=== PATIENT | female | born 1950 | race Caucasian/White ===

== ENCOUNTER → 2018-02-04 | Day surgery (SDC) | payer MEDICARE ==
[~2018-02-04] MED LIST: LIDOCAINE 1% PF 2 ML VIAL. ID; LIDOCAINE 2% PF Vial for OR 5 ML VIAL.; MIDAZOLAM HCL/PF 2 MG/2 ML VIAL. IV; PROPOFOL 20 ML IV; fentaNYL PF VIAL 100 MCG/2 ML VIAL IV
[2018-02-04] MEDS: IV RINGERS,LACTATED 1000ML 1,000 ML IV (16:34)
== END | disposition home or self-care (01) ==
LOC: ENDOS 15:59
DX: K64.0 First degree hemorrhoids (principal); K57.30 Diverticulosis of large intestine without perforation or abscess without bleeding; F41.9 Anxiety disorder, unspecified; F32.9 Major depressive disorder, single episode, unspecified; M19.90 Unspecified osteoarthritis, unspecified site; K21.9 Gastro-esophageal reflux disease without esophagitis; Z83.71 Family history of colonic polyps; Z82.49 Family history of ischemic heart disease and other diseases of the circulatory system; Z79.899 Other long term (current) drug therapy; Z90.710 Acquired absence of both cervix and uterus; Z90.49 Acquired absence of other specified parts of digestive tract; Z80.0 Family history of malignant neoplasm of digestive organs
CPT/HCPCS: 45378; J2704

== ENCOUNTER 2022-02-14 19:25 | Inpatient (IN) | payer MEDICARE ==
[~2022-02-14] VITALS: Ht 162.6 cm; Wt 69.8 kg
[2022-02-14 19:15] VITALS: BP 127/84
[~2022-02-14 19:25] MED LIST changes: +ESCITALOPRAM OX10 MG PO; -LIDOCAINE 1% PF 2 ML VIAL. ID; -LIDOCAINE 2% PF Vial for OR 5 ML VIAL.; -MIDAZOLAM HCL/PF 2 MG/2 ML VIAL. IV; +OMEP20TA63 PO; -PROPOFOL 20 ML IV; -fentaNYL PF VIAL 100 MCG/2 ML VIAL IV
[2022-02-14] MEDS ORDERED: ELECTROLYTE (NON-ICU) PROTOCOL. MC PRN (19:45)
[2022-02-14] MEDS ORDERED: CALCIUM CARBONATE 500 MG TAB.CHEW PO PRN (19:45)
[2022-02-14] MEDS ORDERED: ONDANSETRON PF 4 MG/2 ML VIAL. IVP PRN (19:45)
[2022-02-14] MEDS ORDERED: ACETAMINOPHEN 325 MG TABLET. PO PRN (19:45)
[2022-02-14] MEDS ORDERED: ZOLPIDEM 5 MG TABLET. PO PRN (19:45)
[2022-02-14] MEDS ORDERED: oxyCODONE/APAP 5/325 1 TAB TABLET PO PRN (19:45)
[2022-02-14 20:45] LABS: BASO # 0.1 x10^3/uL (0.0-0.2); BASO % 1 % (0-3); EOS % 1 % (0-3); HEMATOCRIT 41.4 % (36.0-47.0); HEMOGLOBIN 13.9 g/dL (12.0-15.5); LYMPH # 2.1 x10^3/uL (1.0-4.8); LYMPH % 28 % (24-48); MEAN CORPUSCULAR HEMOGLOBIN 30 pg (25-35); MEAN CORPUSCULAR HGB CONC 34 g/dL (31-37); MEAN CORPUSCULAR VOLUME 91 fL (79-100); MONO # 0.6 x10^3/uL (0.0-1.1); MONO % 8 % (0-9); NEUT # 4.8 x10^3/uL (1.8-7.7); NEUT % 63 % (31-73); PLATELET COUNT 217 x10^3/uL (140-400); RED BLOOD COUNT 4.58 x10^6/uL (3.50-5.40); RED CELL DISTRIBUTION WIDTH 15.5 % (11.5-14.5); WHITE BLOOD COUNT 7.6 x10^3/uL (4.0-11.0)
[2022-02-14 20:50] LABS: ALBUMIN 3.9 g/dL (3.4-5.0); ALBUMIN/GLOBULIN RATIO 1.3 (1.0-1.7); CALCIUM 9.8 mg/dL (8.5-10.1); CHOLESTEROL/HDL RATIO 2.8; CREATININE 0.9 mg/dL (0.6-1.0); GFR 62.1; POTASSIUM 3.8 mmol/L (3.5-5.1); TOTAL BILIRUBIN 1.1 mg/dL (0.2-1.0); TOTAL PROTEIN 6.9 g/dL (6.4-8.2)
[2022-02-14] MEDS: SENNOSIDES/DOCUSATE 8.6/50MG TABLET. PO SCH (21:00)
[2022-02-14] MEDS: HEPARIN for SUB-Q USE 5,000 UNIT/ML VIAL. SQ SCH (21:21)
[2022-02-14 23:00] VITALS: BP 116/76
[2022-02-15] VITALS (7 sets, daily range): BP systolic 120–141; BP diastolic 71–87
[2022-02-15] MEDS: oxyCODONE/APAP 5/325 1 TAB TABLET PO PRN ×2 (02:49→23:43)
[2022-02-15 04:07] LABS: BASO % 0 % (0-3); EOS # 0.1 x10^3/uL (0.0-0.7); EOS % 1 % (0-3); HEMATOCRIT 39.7 % (36.0-47.0); HEMOGLOBIN 13.5 g/dL (12.0-15.5); LYMPH # 2.1 x10^3/uL (1.0-4.8); LYMPH % 31 % (24-48); MEAN CORPUSCULAR HEMOGLOBIN 30 pg (25-35); MEAN CORPUSCULAR HGB CONC 34 g/dL (31-37); MEAN CORPUSCULAR VOLUME 89 fL (79-100); MONO # 0.6 x10^3/uL (0.0-1.1); MONO % 9 % (0-9); NEUT # 3.9 x10^3/uL (1.8-7.7); NEUT % 59 % (31-73); PLATELET COUNT 182 x10^3/uL (140-400); RED BLOOD COUNT 4.48 x10^6/uL (3.50-5.40); RED CELL DISTRIBUTION WIDTH 15.1 % (11.5-14.5); WHITE BLOOD COUNT 6.7 x10^3/uL (4.0-11.0)
[2022-02-15 04:25] LABS: ALBUMIN 3.7 g/dL (3.4-5.0); ALBUMIN/GLOBULIN RATIO 1.3 (1.0-1.7); CALCIUM 9.5 mg/dL (8.5-10.1); CREATININE 0.9 mg/dL (0.6-1.0); GFR 62.1; POTASSIUM 3.4 mmol/L (3.5-5.1); TOTAL BILIRUBIN 0.9 mg/dL (0.2-1.0); TOTAL PROTEIN 6.5 g/dL (6.4-8.2)
[2022-02-15] MEDS: HEPARIN for SUB-Q USE 5,000 UNIT/ML VIAL. SQ SCH ×2 (06:32→12:01)
[2022-02-15] MEDS: PANTOPRAZOLE 40 MG TABLET.DR. PO SCH (07:30)
--- NOTE | 2022-02-15 07:54 | PDOC1 ---
History and Physical Date of Admission Date of Admission DATE: 02/15/22 TIME: 07:43 Identification/Chief Complaint Chief Complaint Chest pain Source Source: Patient History of Present Illness History of Present Illness Patient is a 71-year-old woman with past medical history DM2, HTN, COPD, presents as a transfer from [facility] due to chest pain. She reports intermittent left-sided chest pain over the past 2 weeks. Associated shortness of breath. She was seen by her PCP yesterday who referred her to the ED for further evaluation. At [facility] lab work showed mild hypokalemia, mild hyperglycemia, troponins 169, with repeat 168. Chest x-ray showed new cardiomegaly and chronic appearing interstitial changes in the lung base. She denies any nausea or dizziness. She was transferred to [facility] for higher level of care. Past Medical History Past Medical History COPD, hypertension, DM2, cervical cancer, anxiety Past Surgical History Past Surgical History: No pertinent history Social History Smoke: 1 pack per day ALCOHOL: none Drugs: None Current Medications Current Medications Current Medications Ondansetron HCl (Zofran) 4 mg PRN Q6HRS PRN IVP NAUSEA/VOMITING; Start 02/14/22 at 19:45 Calcium Carbonate/ Glycine (Tums) 500 mg PRN Q3HRS PRN PO UPSET STOMACH; Start 02/14/22 at 19:45 Zolpidem Tartrate (Ambien) 5 mg PRN QHS PRN PO INSOMNIA, MAY REPEAT IN 1HR; Start 02/14/22 at 19:45 Info (Non-Icu Electrolyte Protocol) 1 ea PRN DAILY PRN MC SEE COMMENTS; Start 02/14/22 at 19:45 Oxycodone/ Acetaminophen (Percocet 5/325) 1 tab PRN Q4HRS PRN PO MILD PAIN, 1ST CHOICE Last administered on 02/15/22at 02:49; Start 02/14/22 at 19:45 Oxycodone/ Acetaminophen (Percocet 5/325) 2 tab PRN Q4HRS PRN PO MODERATE PAIN, SEVERE PAIN; Start 02/14/22 at 19:45 Acetaminophen (Tylenol) 650 mg PRN Q6HRS PRN PO Headaches, Temp > 101.5F; Start 02/14/22 at 19:45 Senna/Docusate Sodium (Senna Plus) 1 tab BID PO ; Start 02/14/22 at 21:00 Heparin Sodium (Porcine) (Heparin Sodium) 5,000 unit Q8HRS SQ Last administered on 02/15/22at 06:32; Start 02/14/22 at 22:00 Citalopram Hydrobromide (CeleXA) 20 mg DAILY PO ; Start 02/15/22 at 09:00 Pantoprazole Sodium (Protonix) 40 mg DAILYAC PO ; Start 02/15/22 at 07:30 Active Scripts Active Reported Prilosec Otc (Omeprazole Magnesium) 20 Mg Tablet.dr 40 Mg PO DAILY Escitalopram Oxalate 10 Mg Tablet 1 Tab PO DAILY Allergies Allergies: Coded Allergies: No Known Drug Allergies (Unverified , 02/04/18) ROS Review of System GENERAL: No history of weight change, weakness or fevers. SKIN: No bruising, hair changes or rashes. EYES: No blurred, double or loss of vision. NOSE AND THROAT: No history of nosebleeds, hoarseness or sore throat. HEART: Chest pain. Denies palpitations. LUNGS: Shortness of breath. Denies cough, hemoptysis, wheezing . GASTROINTESTINAL: Denies nausea, vomiting, abdominal pain. GENITOURINARY: Denies dysuria, frequency, urgency, hematuria. NEUROLOGIC: Denies history of numbness, tingling, tremor or weakness. PSYCHIATRIC: Denies anxiety, denies depression. ENDOCRINE: No history of heat or cold intolerance, polyuria or polydipsia. EXTREMITIES: Denies muscle weakness, joint pain, pain on walking or stiffness. Physical Exam Physical Exam General: Alert, Oriented X3, Cooperative, No acute distress HEENT: PERRLA, EOMI Lungs: Bibasilar rales, Normal air movement Heart: RRR, no murmurs Cardiovascular: S1, S2 Abdomen: Normal bowel sounds, Soft, No tenderness Extremities: +1 edema bilaterally. No clubbing, No cyanosis Skin: No rashes, No significant lesion Neuro: Normal speech, Normal tone, Sensation intact Psych/Mental Status: Mental status NL, Mood NL Vitals Vitals Vital Signs Date Time Temp Pulse Resp B/P (MAP) Pulse Ox O2 Delivery O2 Flow Rate FiO2 02/15/22 03:19 Room Air 02/15/22 03:00 98.0 96 16 122/87 (99) 96 98.0 Labs Labs Laboratory Tests Test 02/14/22 20:15 02/15/22 00:40 02/15/22 03:45 White Blood Count 7.6 x10^3/uL (4.0-11.0) 6.7 x10^3/uL (4.0-11.0) Red Blood Count 4.58 x10^6/uL (3.50-5.40) 4.48 x10^6/uL (3.50-5.40) Hemoglobin 13.9 g/dL (12.0-15.5) 13.5 g/dL (12.0-15.5) Hematocrit 41.4 % (36.0-47.0) 39.7 % (36.0-47.0) Mean Corpuscular Volume 91 fL (79-100) 89 fL (79-100) Mean Corpuscular Hemoglobin 30 pg (25-35) 30 pg (25-35) Mean Corpuscular Hemoglobin Concent 34 g/dL (31-37) 34 g/dL (31-37) Red Cell Distribution Width 15.5 % (11.5-14.5) 15.1 % (11.5-14.5) Platelet Count 217 x10^3/uL (140-400) 182 x10^3/uL (140-400) Neutrophils (%) (Auto) 63 % (31-73) 59 % (31-73) Lymphocytes (%) (Auto) 28 % (24-48) 31 % (24-48) Monocytes (%) (Auto) 8 % (0-9) 9 % (0-9) Eosinophils (%) (Auto) 1 % (0-3) 1 % (0-3) Basophils (%) (Auto) 1 % (0-3) 0 % (0-3) Neutrophils # (Auto) 4.8 x10^3/uL (1.8-7.7) 3.9 x10^3/uL (1.8-7.7) Lymphocytes # (Auto) 2.1 x10^3/uL (1.0-4.8) 2.1 x10^3/uL (1.0-4.8) Monocytes # (Auto) 0.6 x10^3/uL (0.0-1.1) 0.6 x10^3/uL (0.0-1.1) Eosinophils # (Auto) 0.0 x10^3/uL (0.0-0.7) 0.1 x10^3/uL (0.0-0.7) Basophils # (Auto) 0.1 x10^3/uL (0.0-0.2) 0.0 x10^3/uL (0.0-0.2) Sodium Level 135 mmol/L (136-145) 138 mmol/L (136-145) Potassium Level 3.8 mmol/L (3.5-5.1) 3.4 mmol/L (3.5-5.1) Chloride Level 99 mmol/L (98-107) 101 mmol/L (98-107) Carbon Dioxide Level 24 mmol/L (21-32) 25 mmol/L (21-32) Anion Gap 12 (6-14) 12 (6-14) Blood Urea Nitrogen 8 mg/dL (7-20) 11 mg/dL (7-20) Creatinine 0.9 mg/dL (0.6-1.0) 0.9 mg/dL (0.6-1.0) Estimated GFR (Cockcroft-Gault) 62.1 62.1 BUN/Creatinine Ratio 9 (6-20) 12 (6-20) Glucose Level 176 mg/dL (70-99) 137 mg/dL (70-99) Calcium Level 9.8 mg/dL (8.5-10.1) 9.5 mg/dL (8.5-10.1) Total Bilirubin 1.1 mg/dL (0.2-1.0) 0.9 mg/dL (0.2-1.0) Aspartate Amino Transf (AST/SGOT) 55 U/L (15-37) 51 U/L (15-37) Alanine Aminotransferase (ALT/SGPT) 71 U/L (14-59) 70 U/L (14-59) Alkaline Phosphatase 103 U/L (46-116) 110 U/L (46-116) Troponin I High Sensitivity 171 ng/L (4-50) 150 ng/L (4-50) 174 ng/L (4-50) Total Protein 6.9 g/dL (6.4-8.2) 6.5 g/dL (6.4-8.2) Albumin 3.9 g/dL (3.4-5.0) 3.7 g/dL (3.4-5.0) Albumin/Globulin Ratio 1.3 (1.0-1.7) 1.3 (1.0-1.7) Triglycerides Level 100 mg/dL (0-150) Cholesterol Level 113 mg/dL (0-200) LDL Cholesterol, Calculated 52 mg/dL (0-100) VLDL Cholesterol, Calculated 20 mg/dL (0-40) Non-HDL Cholesterol Calculated 72 mg/dL (0-129) HDL Cholesterol 41 mg/dL (40-60) Cholesterol/HDL Ratio 2.8 Thyroid Stimulating Hormone (TSH) 6.159 uIU/mL (0.358-3.74) Laboratory Tests Test 02/14/22 20:15 02/15/22 00:40 02/15/22 03:45 White Blood Count 7.6 x10^3/uL (4.0-11.0) 6.7 x10^3/uL (4.0-11.0) Red Blood Count 4.58 x10^6/uL (3.50-5.40) 4.48 x10^6/uL (3.50-5.40) Hemoglobin 13.9 g/dL (12.0-15.5) 13.5 g/dL (12.0-15.5) Hematocrit 41.4 % (36.0-47.0) 39.7 % (36.0-47.0) Mean Corpuscular Volume 91 fL (79-100) 89 fL (79-100) Mean Corpuscular Hemoglobin 30 pg (25-35) 30 pg (25-35) Mean Corpuscular Hemoglobin Concent 34 g/dL (31-37) 34 g/dL (31-37) Red Cell Distribution Width 15.5 % (11.5-14.5) 15.1 % (11.5-14.5) Platelet Count 217 x10^3/uL (140-400) 182 x10^3/uL (140-400) Neutrophils (%) (Auto) 63 % (31-73) 59 % (31-73) Lymphocytes (%) (Auto) 28 % (24-48) 31 % (24-48) Monocytes (%) (Auto) 8 % (0-9) 9 % (0-9) Eosinophils (%) (Auto) 1 % (0-3) 1 % (0-3) Basophils (%) (Auto) 1 % (0-3) 0 % (0-3) Neutrophils # (Auto) 4.8 x10^3/uL (1.8-7.7) 3.9 x10^3/uL (1.8-7.7) Lymphocytes # (Auto) 2.1 x10^3/uL (1.0-4.8) 2.1 x10^3/uL (1.0-4.8) Monocytes # (Auto) 0.6 x10^3/uL (0.0-1.1) 0.6 x10^3/uL (0.0-1.1) Eosinophils # (Auto) 0.0 x10^3/uL (0.0-0.7) 0.1 x10^3/uL (0.0-0.7) Basophils # (Auto) 0.1 x10^3/uL (0.0-0.2) 0.0 x10^3/uL (0.0-0.2) Sodium Level 135 mmol/L (136-145) 138 mmol/L (136-145) Potassium Level 3.8 mmol/L (3.5-5.1) 3.4 mmol/L (3.5-5.1) Chloride Level 99 mmol/L (98-107) 101 mmol/L (98-107) Carbon Dioxide Level 24 mmol/L (21-32) 25 mmol/L (21-32) Anion Gap 12 (6-14) 12 (6-14) Blood Urea Nitrogen 8 mg/dL (7-20) 11 mg/dL (7-20) Creatinine 0.9 mg/dL (0.6-1.0) 0.9 mg/dL (0.6-1.0) Estimated GFR (Cockcroft-Gault) 62.1 62.1 BUN/Creatinine Ratio 9 (6-20) 12 (6-20) Glucose Level 176 mg/dL (70-99) 137 mg/dL (70-99) Calcium Level 9.8 mg/dL (8.5-10.1) 9.5 mg/dL (8.5-10.1) Total Bilirubin 1.1 mg/dL (0.2-1.0) 0.9 mg/dL (0.2-1.0) Aspartate Amino Transf (AST/SGOT) 55 U/L (15-37) 51 U/L (15-37) Alanine Aminotransferase (ALT/SGPT) 71 U/L (14-59) 70 U/L (14-59) Alkaline Phosphatase 103 U/L (46-116) 110 U/L (46-116) Troponin I High Sensitivity 171 ng/L (4-50) 150 ng/L (4-50) 174 ng/L (4-50) Total Protein 6.9 g/dL (6.4-8.2) 6.5 g/dL (6.4-8.2) Albumin 3.9 g/dL (3.4-5.0) 3.7 g/dL (3.4-5.0) Albumin/Globulin Ratio 1.3 (1.0-1.7) 1.3 (1.0-1.7) Triglycerides Level 100 mg/dL (0-150) Cholesterol Level 113 mg/dL (0-200) LDL Cholesterol, Calculated 52 mg/dL (0-100) VLDL Cholesterol, Calculated 20 mg/dL (0-40) Non-HDL Cholesterol Calculated 72 mg/dL (0-129) HDL Cholesterol 41 mg/dL (40-60) Cholesterol/HDL Ratio 2.8 Thyroid Stimulating Hormone (TSH) 6.159 uIU/mL (0.358-3.74) Images Images PATIENT: BETINA SEWELL ACCOUNT: [id number] : 1950 LOCATION: ER AGE: 71 SEX: F EXAM STATUS: REG ER ORD. PHYSICIAN: MATTHEW TALLEY APRN REASON: chest pain PROCEDURE: PORTABLE CHEST 1V EXAM: XR CHEST 1V 02/14/2022 11:44 AM CLINICAL INDICATION: Chest pain COMPARISON: Chest radiograph 03/18/2017 TECHNIQUE: AP view of the chest FINDINGS: There is new cardiomegaly. There are calcified left hilar lymph nodes. The lungs are adequately expanded. There are mild chronic appearing interstitial changes in the lung bases. No pleural effusion or pneumothorax. IMPRESSION: 1. New cardiomegaly. 2. Mild chronic appearing interstitial changes in the lung bases. VTE Prophylaxis Ordered VTE Prophylaxis Devices: No VTE Pharmacological Prophylaxi: Yes Assessment/Plan Assessment/Plan Chest pain CHF DM2 HTN Plan: Place consultation to cardiology Troponins trended and repeat 150, 174 Echocardiogram pending, lipid panel pending. Lasix 40x1 At the time my evaluation patient still complains of shortness of breath. If this persists she may benefit from a 6-minute walk. TSH 6.15. Subclinical hypothyroidism, recommend recheck in 6-8 weeks. LDSS Resume home medications FEN - Cardiac diet PPX - Heparin FULL CODE/surrogate decision-maker is her (Drew Coffey) Dispo - inpatient for above Justifications for Admission Other Justification HARDEEP ARECHIGA MD February 15, 2022 07:54
[2022-02-15] MEDS ORDERED: FLUT1DIS3 PO (08:07)
[2022-02-15] MEDS ORDERED: ALBU2.5V8 INH (08:07)
[2022-02-15] MEDS ORDERED: IPRA3AMP29 NEB (08:07)
[2022-02-15] MEDS ORDERED: METF500T16 PO (08:07)
[2022-02-15] MEDS ORDERED: DULO30CA44 PO (08:07)
[2022-02-15] MEDS ORDERED: ATOR80TA72 PO (08:07)
[2022-02-15] MEDS ORDERED: DEXTROSE 50% 25 GM / 50ML DISP.SYRIN. IV PRN (08:15)
[2022-02-15] MEDS ORDERED: CITALOPRAM 20 MG TABLET. PO SCH (09:00)
[2022-02-15] MEDS: SENNOSIDES/DOCUSATE 8.6/50MG TABLET. PO SCH ×3 (09:00→23:39)
[2022-02-15] MEDS: INSULIN LISPRO 300 UNITS/3 ML VIAL. SQ SCH ×3 (09:00→17:00)
--- NOTE | 2022-02-15 09:00 | PDOC2 ---
LAURIE SPEARS [employer] 02/15/22 0900: CARDIAC CONSULT DATE OF CONSULT Date of Consult DATE: 02/15/22 TIME: 08:48 REASON FOR CONSULT Reason for Consult: Chest pain, elevated troponin REFERRING PHYSICIAN Referring Physician: Tito SOURCE Source: Chart review, Patient HISTORY OF PRESENT ILLNESS HISTORY OF PRESENT ILLNESS This is a 71 yo female admitted for complains of chest pain. This has been ongoing for about 2 weeks. She has been having squeezing left chest discomfort waxing and waning and worse this week. Positive for SERRA. No nausea or vomiting. some palpitations. No jaw tightness or arm heaviness. No fever or chills. No viral symptoms. No falls or any recent injury. No form of ischemic workup in the past. No hx of CAD, VTE or arrhythmias. She is unvaccinated for covid-19. PAST MEDICAL HISTORY Cardiovascular: HTN, Hyperlipidemia Pulmonary: COPD CENTRAL NERVOUS SYSTEM: Carpal Tunnel Syndrome GI: GERD Heme/Onc: Cancer (cervical) Hepatobiliary: Cholelithiasis Psych: Anxiety, Other (Vit D deficiency) Musculoskeletal: Osteoarthritis Infectious disease: No pertinent hx ENT: No pertinent hx Renal/: No pertinent hx Endocrine: Diabetes (2) PAST SURGICAL HISTORY Past Surgical History: Arthroscopy (left knee surgery), Cholecystectomy, Hysterectomy, Other (right hand carpal tunnel release) SOCIAL HISTORY Smoke: 1 pack per day Lives: with Family CURRENT MEDICATIONS CURRENT MEDICATIONS Current Medications Medications (Trade) Dose Ordered Sig/Aura Route PRN Reason Start Time Stop Time Status Last Admin Dose Admin Oxycodone/ Acetaminophen (Percocet 5/325) 1 tab PRN Q4HRS PRN PO MILD PAIN, 1ST CHOICE 02/14/22 19:45 02/15/22 02:49 Heparin Sodium (Porcine) (Heparin Sodium) 5,000 unit Q8HRS SQ 02/14/22 22:00 02/15/22 06:32 ALLERGIES ALLERGIES: Coded Allergies: No Known Drug Allergies (Unverified , 02/04/18) ROS Review of System 14 point ROS evaluated with pertinent positives noted per HPI PHYSICAL EXAM General: Alert, Oriented X3, Cooperative, No acute distress HEENT: Atraumatic, Mucous membr. moist/pink Lungs: Other (bibasilar crackles) Heart: Regular rate (SR), Normal S1, Normal S2, Other (2/6 systolic apical murmur) Abdomen: Soft, No tenderness Extremities: No cyanosis, Other (trace LE edema) Skin: No breakdown, No significant lesion Neuro: Normal speech, Sensation intact Psych/Mental Status: Mental status NL, Mood NL MUSCULOSKELETAL: Osteoarthritic changes both hands VITALS/I&O VITALS/I&O: Vital Signs Date Time Temp Pulse Resp B/P (MAP) Pulse Ox O2 Delivery O2 Flow Rate FiO2 02/15/22 07:00 97.8 89 16 134/87 (103) 98 Nasal Cannula 2.0 97.8 I & O 02/14/22 02/14/22 02/15/22 15:00 23:00 07:00 Intake Total 100 ml 100 ml Balance 100 ml 100 ml LABS Lab: Laboratory Tests Test 02/14/22 20:15 02/15/22 00:40 02/15/22 03:45 White Blood Count 7.6 x10^3/uL (4.0-11.0) 6.7 x10^3/uL (4.0-11.0) Red Blood Count 4.58 x10^6/uL (3.50-5.40) 4.48 x10^6/uL (3.50-5.40) Hemoglobin 13.9 g/dL (12.0-15.5) 13.5 g/dL (12.0-15.5) Hematocrit 41.4 % (36.0-47.0) 39.7 % (36.0-47.0) Mean Corpuscular Volume 91 fL (79-100) 89 fL (79-100) Mean Corpuscular Hemoglobin 30 pg (25-35) 30 pg (25-35) Mean Corpuscular Hemoglobin Concent 34 g/dL (31-37) 34 g/dL (31-37) Red Cell Distribution Width 15.5 % (11.5-14.5) H 15.1 % (11.5-14.5) H Platelet Count 217 x10^3/uL (140-400) 182 x10^3/uL (140-400) Neutrophils (%) (Auto) 63 % (31-73) 59 % (31-73) Lymphocytes (%) (Auto) 28 % (24-48) 31 % (24-48) Monocytes (%) (Auto) 8 % (0-9) 9 % (0-9) Eosinophils (%) (Auto) 1 % (0-3) 1 % (0-3) Basophils (%) (Auto) 1 % (0-3) 0 % (0-3) Neutrophils # (Auto) 4.8 x10^3/uL (1.8-7.7) 3.9 x10^3/uL (1.8-7.7) Lymphocytes # (Auto) 2.1 x10^3/uL (1.0-4.8) 2.1 x10^3/uL (1.0-4.8) Monocytes # (Auto) 0.6 x10^3/uL (0.0-1.1) 0.6 x10^3/uL (0.0-1.1) Eosinophils # (Auto) 0.0 x10^3/uL (0.0-0.7) 0.1 x10^3/uL (0.0-0.7) Basophils # (Auto) 0.1 x10^3/uL (0.0-0.2) 0.0 x10^3/uL (0.0-0.2) Sodium Level 135 mmol/L (136-145) L 138 mmol/L (136-145) Potassium Level 3.8 mmol/L (3.5-5.1) 3.4 mmol/L (3.5-5.1) L Chloride Level 99 mmol/L (98-107) 101 mmol/L (98-107) Carbon Dioxide Level 24 mmol/L (21-32) 25 mmol/L (21-32) Anion Gap 12 (6-14) 12 (6-14) Blood Urea Nitrogen 8 mg/dL (7-20) 11 mg/dL (7-20) Creatinine 0.9 mg/dL (0.6-1.0) 0.9 mg/dL (0.6-1.0) Estimated GFR (Cockcroft-Gault) 62.1 62.1 BUN/Creatinine Ratio 9 (6-20) 12 (6-20) Glucose Level 176 mg/dL (70-99) H 137 mg/dL (70-99) H Calcium Level 9.8 mg/dL (8.5-10.1) 9.5 mg/dL (8.5-10.1) Total Bilirubin 1.1 mg/dL (0.2-1.0) H 0.9 mg/dL (0.2-1.0) Aspartate Amino Transferase (AST) 55 U/L (15-37) H 51 U/L (15-37) H Alanine Aminotransferase (ALT) 71 U/L (14-59) H 70 U/L (14-59) H Alkaline Phosphatase 103 U/L (46-116) 110 U/L (46-116) Troponin I High Sensitivity 171 ng/L (4-50) H 150 ng/L (4-50) H 174 ng/L (4-50) H Total Protein 6.9 g/dL (6.4-8.2) 6.5 g/dL (6.4-8.2) Albumin 3.9 g/dL (3.4-5.0) 3.7 g/dL (3.4-5.0) Albumin/Globulin Ratio 1.3 (1.0-1.7) 1.3 (1.0-1.7) Triglycerides Level 100 mg/dL (0-150) Cholesterol Level 113 mg/dL (0-200) LDL Cholesterol, Calculated 52 mg/dL (0-100) VLDL Cholesterol, Calculated 20 mg/dL (0-40) Non-HDL Cholesterol Calculated 72 mg/dL (0-129) HDL Cholesterol 41 mg/dL (40-60) Cholesterol/HDL Ratio 2.8 Thyroid Stimulating Hormone (TSH) 6.159 uIU/mL (0.358-3.74) H Laboratory Tests 02/14/22 20:15 02/15/22 03:45 Laboratory Tests 02/14/22 20:15 02/15/22 03:45 ASSESSMENT/PLAN ASSESSMENT/PLAN 1. NSTEMI: mild troponin elevation with LBBB on EKG no prior EKG for comparison 2. Hx of HTN: no noted med, controlled 3. HLP: on home high dose lipitor 4. Subclinical hypothyroidism 5. COPD with continued tobacco use 6. DM2 7. Hx of Vit D def Recommendations 1. TTE. C today with possible PCI, risks and benefits discussed and agreeable to proceed. Rapid covid-19 swab preop 2. ASA. Continue lipitor 3. Hold metformin for 48 hrs. 4. Smoking cessation ALESSANDRO BERGER MD 02/16/22 1141: CARDIAC CONSULT ASSESSMENT/PLAN ASSESSMENT/PLAN Late entry for 02/15/22 The patient was seen and interviewed as well as examined at the bedside. The chart was reviewed. The case was discussed. Agree with the plan of care. LAURIE SPEARS APRN February 15, 2022 09:00 ALESSANDRO BERGER MD February 16, 2022 11:41
[2022-02-15] MEDS ORDERED: FUROSEMIDE 40 MG/4 ML VIAL. IVP ONE (09:30)
[2022-02-15] MEDS ORDERED: ASPIRIN ENTERIC COATED 325 MG TABLET.DR. PO ONE (10:30)
--- NOTE | 2022-02-15 10:57 | NUR ---
Per cardiology, this RN non administer furosemide.
[2022-02-15] MEDS ORDERED: IODIXANOL 320 MG/ML 100 ML VIAL. ONE (12:32)
[2022-02-15] MEDS ORDERED: LIDOCAINE 1% PF 2 ML VIAL. ONE (12:32)
[2022-02-15] MEDS ORDERED: NITROGLYCERIN 200 MCG/2 ML SYRINGE FOR CATH/VASC LAB. ONE (12:37)
[2022-02-15] MEDS ORDERED: VERAPAMIL 5 MG/2 ML VIAL. ONE (12:37)
[2022-02-15] MEDS ORDERED: fentaNYL PF VIAL 100 MCG/2 ML VIAL ONE (12:37)
[2022-02-15] MEDS ORDERED: HEPARIN for IV BOLUS 10,000 UNIT/10 ML VIAL. ONE (12:37)
[2022-02-15] MEDS ORDERED: MIDAZOLAM HCL/PF 2 MG/2 ML VIAL. ONE (12:37)
[2022-02-15] MEDS ORDERED: MIDAZOLAM HCL/PF 2 MG/2 ML VIAL. IV ONE (13:30)
[2022-02-15] MEDS ORDERED: HEPARIN for IV BOLUS 10,000 UNIT/10 ML VIAL. IART ONE (13:30)
[2022-02-15] MEDS ORDERED: LIDOCAINE 1% PF 2 ML VIAL. INJ ONE (13:30)
[2022-02-15] MEDS ORDERED: NITROGLYCERIN 200 MCG/2 ML SYRINGE FOR CATH/VASC LAB. IART ONE (13:30)
[2022-02-15] MEDS ORDERED: fentaNYL PF VIAL 100 MCG/2 ML VIAL IV ONE (13:30)
[2022-02-15] MEDS ORDERED: HEPARIN for IV BOLUS 10,000 UNIT/10 ML VIAL. IV PRN (13:30)
[2022-02-15] MEDS ORDERED: VERAPAMIL 5 MG/2 ML VIAL. IART ONE (13:30)
--- NOTE | 2022-02-15 15:06 | CARD ---
MR#: [id number] Date of Study: 02/15/2022 Ordering Physician: LAURIE SPEARS, Referring Physician: LAURIE SPEARS, Tech: MIKE GAN APPROVED REPORT Technologist: MIKE GAN Nurse: WILLIE SHEFFIELD Procedure(s) performed: MODERATE SEDATION TIME: 26 MINUTES FLUORO TIME: 3.4 MIN DOSE: 69 GYCM2 CONTRAST: 73CC VISI Left heart cath, coronary angiography INDICATION The indication(s) include : non-STEMI . [facility] Clinical Frailty Scale [facility] Clinical Frailty Scale: Moderately Frail Heart Failure Heart Failure: Yes If Yes, Newly Diagnosed: No If Yes, HF Type: Diastolic If Yes, NYHA Class: Class II CASE TECHNIQUE IV conscious sedation was used throughout procedure with appropriate monitoring and was performed in the presence of a registered nurse who was an independent trained observer other than the physician p erforming the procedure. During this case, Fluoroscopy and low osmolar contrast were used for imaging . Specimen(s) Removed: N/A Estimated Blood loss: 15 cc's. PROCEDURE NARRATIVE Clinical information: 71-year-old woman presented with shortness of breath and elevated troponin. Procedure details: After appropriate informed consent the right wrist was prepped and draped in usual sterile fashion. Under 1% lidocaine local anesthesia a 6 Upper Sorbian sheath was placed. Diagnostic angiography was then pe rformed with a 6 Upper Sorbian TIG catheter and a JR4 catheter. Left ventricular end-diastolic pressure was obtained with a TIG catheter and a pullback was performed. At case completion catheters and sheaths were removed and hemostasis was achieved via a Terumo radial band. Findings: LVEDP 23 mmHg No LV to aortic pullback gradient Coronary angiography: Left main is a large-caliber vessel with normal angiographic appearance LAD is a large-caliber vessel with mild luminal irregularities of up to 20% Left circumflex is a moderate caliber nondominant vessel with a proximal 50% stenosis RCA is a large-caliber dominant vessel with an ostial 99% stenosis. The distal vessel seen to fill a ntegrade as well as via [id number] collaterals. Conclusion 1. Acute on chronic systolic and diastolic heart failure. 2. Two-vessel coronary artery disease Recommendations 1. Plan for high risk PCI for severe ostial RCA calcification with possible orbital atherectomy in t he next 48 to 72 hours after stabilization of her heart failure and initiation of antiplatelet and an ticoagulant therapy. Signed by : Curtis Noguera, Electronically Approved : 02/15/2022 15:06:47
[2022-02-15] MEDS ORDERED: POTASSIUM CHLORIDE 20 MEQ TABLET.ER. PO ONE (15:30)
[2022-02-15] MEDS ORDERED: CLOPIDOGREL BISULFATE 75 MG TABLET PO ONE (15:30)
--- NOTE | 2022-02-15 15:38 | NUR ---
SS following for discharge planning. SS reviewed pt chart and discussed with pt RN. Pt is from home with spouse and is currently requiring oxygen at two liters nasal canula. Cardiology following. Pt on IV Lasix. Heart cath today. SS will continue to follow for discharge planning.
--- NOTE | 2022-02-15 18:05 | CARD ---
MR#: [id number] Date of Study: 02/15/2022 Ordering Physician: HARDEEP ARECHIGA, Referring Physician: HARDEEP ARECHIGA Tech: Kurt Sweeney [facility] APPROVED REPORT EXAM: Two-dimensional and M-mode echocardiogram with Doppler and color Doppler. Other Information Quality : GoodHR: 96bpm Rhythm : NSR INDICATION Dyspnea Chest Pain Cardiomegaly RISK FACTORS Hypertension Obesity Diabetes Smoking 2D DIMENSIONS Left Atrium(2D)4.5 (1.6-4.0cm)IVSd0.9 (0.7-1.1cm) Aortic Root(2D)2.8 (2.0-3.7cm)LVDd5.7 (3.9-5.9cm) LVOT Diameter1.7 (1.8-2.4cm)PWd1.0 (0.7-1.1cm) LA Zvyfxt44 (18-58mL)LVDs5.6 (2.5-4.0cm) FS (%) 2.4 %SV8.8 ml Aortic Valve AoV Peak Rashi.100.1cm/sAoV VTI13.8cm AO Peak GR.4.0mmHgLVOT VTI 5.99cm AO Mean GR.2mmHg Mitral Valve MV E Aahlumug350.3cm/sMV E Peak Gr.7mmHg MV DECEL [id number] A Iaprvfgr32.1cm/s MV E Mean Gr.3mmHgE/A Ratio1.4 TDI Lateral E' P. V7.72cm/sMedial E' P. V3.09cm/s E/Lateral E'13.1E/Medial E'32.8 Pulmonary Valve PV Peak Dzrwhast69.5cm/s Tricuspid Valve TR P. Swsfnnyz889tz/sTR Peak Gr.33mmHg Pulmonary Vein S1 Lxtiwdoq58.8cm/sS2 Ehauglga77.58cm/s D2 Yclesszh50.6cm/s LEFT VENTRICLE The Left Ventricle is borderline dilated. There is normal left ventricular wall thickness. The ejecti on fraction is severely impaired. The Ejection Fraction is estimated at 15%. There is severe global h ypokinesis of the left ventricle. No left ventricle thrombus noted on this study. There is no ventric ular septal defect visualized. There is no left ventricular aneurysm. There is no mass noted in the l eft ventricle. RIGHT VENTRICLE The right ventricle is normal size. There is normal right ventricular wall thickness. The right ventr icular systolic function is normal. ATRIA The left atrium is moderately dilated. The right atrium is mildly dilated. The interatrial septum is intact with no evidence for an atrial septal defect or patent foramen ovale as noted on 2-D or Dopple r imaging. AORTIC VALVE The aortic valve is normal in structure and function. Doppler and Color Flow revealed no significant aortic regurgitation. There is no significant aortic valvular stenosis. There is no aortic valvular v egetation. MITRAL VALVE The mitral valve is thickened but opens well. There is no evidence of mitral valve prolapse. There is no mitral valve stenosis. Doppler and Color-flow revealed moderate to moderately severe severe martin l regurgitation. TRICUSPID VALVE The tricuspid valve is normal in structure and function. Doppler and Color Flow revealed moderate tri cuspid regurgitation. There is no tricuspid valve prolapse or vegetation. There is no tricuspid valve stenosis. PULMONIC VALVE The pulmonary valve is normal in structure and function. Doppler and Color Flow revealed no pulmonic valvular regurgitation. There is no pulmonic valvular stenosis. GREAT VESSELS The aortic root is normal in size. The ascending aorta is normal in size. The pulmonary artery is nor mal. The IVC is mildly dilated with blunted inspiratory response. PERICARDIAL EFFUSION There is no pleural effusion. There is no evidence of significant pericardial effusion. Critical Notification Critical Value: No <Conclusion> The Left Ventricle is borderline dilated. The ejection fraction is severely impaired. The Ejection Fraction is estimated at 15%. There is severe global hypokinesis of the left ventricle. Doppler and Color Flow revealed no significant aortic regurgitation. There is no significant aortic valvular stenosis. Doppler and Color-flow revealed moderate to moderately severe severe mitral regurgitation. Doppler and Color Flow revealed moderate tricuspid regurgitation. Signed by : Mohsen Moore MD Electronically Approved : 02/15/2022 18:05:29
[2022-02-15] MEDS: IPRATRPIUM/ALBUTEROL 0.5/2.5MG 3 ML NEBU. NEB SCH (20:00)
[2022-02-15] MEDS: ATORVASTATIN CALCIUM 40 MG TABLET. PO SCH (20:22)
[2022-02-16 02:56] VITALS: BP 119/70
[2022-02-16] MEDS: PANTOPRAZOLE 40 MG TABLET.DR. PO SCH (06:36)
[2022-02-16 06:39] LABS: CALCIUM 9.7 mg/dL (8.5-10.1); CREATININE 0.9 mg/dL (0.6-1.0); GFR 62.1; POTASSIUM 4.9 mmol/L (3.5-5.1)
[2022-02-16 06:41] LABS: PROTHROMBIN TIME PATIENT 15.8 SEC (11.7-14.0)
[2022-02-16 07:00] VITALS: BP 141/77
[2022-02-16] MEDS: INSULIN LISPRO 300 UNITS/3 ML VIAL. SQ SCH ×3 (08:00→16:49)
[2022-02-16] MEDS: IPRATRPIUM/ALBUTEROL 0.5/2.5MG 3 ML NEBU. NEB SCH ×4 (08:00→20:41)
[2022-02-16] MEDS: ASPIRIN ENTERIC COATED 81 MG TABLET.DR. PO SCH (08:51)
[2022-02-16] MEDS: CLOPIDOGREL BISULFATE 75 MG TABLET PO SCH (08:52)
[2022-02-16] MEDS: DULoxetine HCL 30 MG CAPSULE.DR PO SCH ×2 (08:52→20:13)
[2022-02-16] MEDS: METOPROLOL SUCC 24HR ER 25 MG TAB.ER.24H. PO SCH (08:52)
[2022-02-16] MEDS: SENNOSIDES/DOCUSATE 8.6/50MG TABLET. PO SCH ×2 (08:52→20:14)
[2022-02-16] MEDS: FUROSEMIDE 40 MG/4 ML VIAL. IVP SCH (08:52)
[2022-02-16] MEDS: HYDROcodone/APAP 5/325MG 1 TAB TABLET PO PRN ×2 (10:02→20:20)
[2022-02-16 11:00] VITALS: BP 110/72
--- NOTE | 2022-02-16 11:44 | PDOC ---
LAURIE SPEARS MANAGER FUND 02/16/22 1144: CARDIO Progress Notes Date and Time Date of Service 02/16/2022 Time of Evaluation 1120 Subjective Subjective: No Chest Pain, No shortness of breath, No Palpitations Vitals Vitals Vital Signs Date Time Temp Pulse Resp B/P (MAP) Pulse Ox O2 Delivery O2 Flow Rate FiO2 02/16/22 11:06 97 Room Air 02/16/22 11:00 98.1 96 18 110/72 (85) 2.0 98.1 Weight Weight [ ] Input and Output Intake and Output Intake and Output 02/16/22 07:00 Intake Total 750 ml Output Total 300 ml Balance 450 ml Intake Oral 750 ml Output Urine Total 300 ml # Voids 4 # Bowel Movements 1 Laboratory Labs Laboratory Tests Test 02/15/22 19:23 02/15/22 23:30 02/16/22 00:07 02/16/22 05:50 Glucose (Fingerstick) 173 mg/dL (70-99) 151 mg/dL (70-99) Heparin Anti-Xa Act, Unfractionated 0.15 IU/mL (0.30-0.70) Platelet Count 185 x10^3/uL (140-400) Prothrombin Time 15.8 SEC (11.7-14.0) Prothromb Time International Ratio 1.3 (0.8-1.1) Sodium Level 137 mmol/L (136-145) Potassium Level 4.9 mmol/L (3.5-5.1) Chloride Level 100 mmol/L (98-107) Carbon Dioxide Level 21 mmol/L (21-32) Anion Gap 16 (6-14) Blood Urea Nitrogen 12 mg/dL (7-20) Creatinine 0.9 mg/dL (0.6-1.0) Estimated GFR (Cockcroft-Gault) 62.1 Glucose Level 150 mg/dL (70-99) Calcium Level 9.7 mg/dL (8.5-10.1) Magnesium Level 2.0 mg/dL (1.8-2.4) Test 02/16/22 05:55 02/16/22 06:10 02/16/22 07:52 Heparin Anti-Xa Act, Unfractionated 0.36 IU/mL (0.30-0.70) Glucose (Fingerstick) 157 mg/dL (70-99) 138 mg/dL (70-99) Physical Exam HEENT: Neck Supple W Full Motion Chest: Symmetric LUNGS: Other (diminished bases) Heart: RRR (SR), murmurs (3/6 systolic murmur to LLS border) Abdomen: Soft N/T Extremities: No Calf Tenderness, Other (1+ bilateral LE pitting edema) Neurology: alert, oriented, follow commands Assessment Assessment 1. NSTEMI: LHC revealed 2VD 2. Hx of HTN: no noted med, controlled 3. HLP: on home high dose lipitor 4. Subclinical hypothyroidism 5. COPD with continued tobacco use 6. DM2 7. Hx of Vit D def 8. CAD Left main is a large-caliber vessel with normal angiographic appearance LAD is a large-caliber vessel with mild luminal irregularities of up to 20% Left circumflex is a moderate caliber nondominant vessel with a proximal 50% stenosis RCA is a large-caliber dominant vessel with an ostial 99% stenosis. The distal vessel seen to fill antegrade as well as via [id number] collaterals. 9. Acute on chronic combined diastolic/systolic CHF: better compensated 10. Moderate to severe MR 11. Severe Cardiomyopathy: EF at 15% Recommendations 1. Plan for high risk PCI for severe ostial RCA calcification with possible orbital atherectomy on Saturday 2. ASA, palvix. Continue Heparin drip. Optimize over the weekend. Continue lipitor 3. Lasix therapy.. Start aldactone and jardiance. Monitor BP trend and will consider for entresto 4. Smoking cessation 5. May need outpt referral Justicifation of Admission Dx: Justifications for Admission: Justification of Admission Dx: Yes ALESSANDRO BERGER MD 02/16/22 1443: CARDIO Progress Notes Plan Plan The patient was seen and interviewed as well as examined at the bedside. The chart was reviewed. The case was discussed. Agree with the plan of care. LAURIE SPEARS APRN February 16, 2022 11:44 ALESSANDRO BERGER MD February 16, 2022 14:43
[2022-02-16] MEDS: SPIRONOLACTONE 25 MG TABLET PO SCH (12:07)
[2022-02-16] MEDS: EMPAGLIFLOZIN 10 MG TABLET. PO SCH (12:08)
--- NOTE | 2022-02-16 13:17 | PDOC ---
[facility] PROGRESS NOTE Date of Service DOS: DATE: 02/16/22 TIME: 13:09 Chief Complaint Chief Complaint Chest pain Systolic and diastolic CHF DM2 HTN History of Present Illness History of Present Illness 02/16: Patient seen and evaluated with family at bedside. She reports some pain in her left hip, states from sitting. Had LCH yesterday that showed acute on chronic systolic and diastolic heart failure, two-vessel coronary artery disease. Plan for high risk PCI for severe RCA calcification with possible orbital atherectomy on Saturday. On heparin gtt. Continue secondary measures, aspirin, Plavix. Vitals/I&O Vitals/I&O: Vital Signs Date Time Temp Pulse Resp B/P (MAP) Pulse Ox O2 Delivery O2 Flow Rate FiO2 02/16/22 11:06 97 Room Air 02/16/22 11:00 98.1 96 18 110/72 (85) 2.0 98.1 I & O 02/15/22 02/15/22 02/16/22 15:00 23:00 07:00 Intake Total 700 ml 50 ml Output Total 200 ml 100 ml Balance -200 ml 600 ml 50 ml Physical Exam General: Alert, Oriented X3, Cooperative, No acute distress Heart: Regular rate (SR), Normal S1, Normal S2, Other (2/6 systolic apical murmur) Abdomen: Soft, No tenderness Extremities: No cyanosis, Other (trace LE edema) Skin: No breakdown, No significant lesion Labs Labs: Laboratory Tests Test 02/15/22 19:23 02/15/22 23:30 02/16/22 00:07 02/16/22 05:50 Glucose (Fingerstick) 173 mg/dL (70-99) 151 mg/dL (70-99) Heparin Anti-Xa Act, Unfractionated 0.15 IU/mL (0.30-0.70) Platelet Count 185 x10^3/uL (140-400) Prothrombin Time 15.8 SEC (11.7-14.0) Prothromb Time International Ratio 1.3 (0.8-1.1) Sodium Level 137 mmol/L (136-145) Potassium Level 4.9 mmol/L (3.5-5.1) Chloride Level 100 mmol/L (98-107) Carbon Dioxide Level 21 mmol/L (21-32) Anion Gap 16 (6-14) Blood Urea Nitrogen 12 mg/dL (7-20) Creatinine 0.9 mg/dL (0.6-1.0) Estimated GFR (Cockcroft-Gault) 62.1 Glucose Level 150 mg/dL (70-99) Calcium Level 9.7 mg/dL (8.5-10.1) Magnesium Level 2.0 mg/dL (1.8-2.4) Test 02/16/22 05:55 02/16/22 06:10 02/16/22 07:52 02/16/22 11:58 Heparin Anti-Xa Act, Unfractionated 0.36 IU/mL (0.30-0.70) Glucose (Fingerstick) 157 mg/dL (70-99) 138 mg/dL (70-99) 195 mg/dL (70-99) Comment Review of Relevant I have reviewed the following items jerad (where applicable) has been applied. Medications: Current Medications Medications (Trade) Dose Ordered Sig/Aura Route PRN Reason Start Time Stop Time Status Last Admin Dose Admin Nitroglycerin (Nitroglycerin) 200 mcg 1X ONCE IART 02/15/22 13:30 02/15/22 13:31 DC 02/15/22 13:24 Verapamil HCl (Verapamil) 2.5 mg 1X ONCE IART 02/15/22 13:30 02/15/22 13:31 DC 02/15/22 13:24 Heparin Sodium (Porcine) (Heparin Sodium) 2,500 unit 1X ONCE IART 02/15/22 13:30 02/15/22 13:31 DC 02/15/22 13:25 Heparin Sodium/ Sodium Chloride (HEPARIN for ARTERIAL LINE FLUSH) 1,000 unit 1X ONCE IART 02/15/22 13:30 02/15/22 13:31 DC 02/15/22 13:24 Midazolam HCl (Versed) 1 mg 1X ONCE IV 02/15/22 13:30 02/15/22 13:31 DC 02/15/22 12:55 Fentanyl Citrate (Fentanyl 2ml Vial) 50 mcg 1X ONCE IV 02/15/22 13:30 02/15/22 13:31 DC 02/15/22 12:55 Lidocaine HCl (Xylocaine-Mpf 1% 2ml Vial) 2 ml 1X ONCE INJ 02/15/22 13:30 02/15/22 13:31 DC 02/15/22 13:24 Heparin Sodium (Porcine) (Heparin Sodium) 1,800 unit PRN Q6HRS PRN IV FOR UFH LEVEL LESS THAN 0.2 02/15/22 13:30 02/16/22 00:46 Aspirin (Ecotrin) 81 mg DAILYWBKFT PO 02/16/22 08:00 02/16/22 08:51 Clopidogrel Bisulfate (Plavix) 75 mg 1X ONCE PO 02/15/22 15:30 02/15/22 15:45 DC 02/15/22 15:29 Clopidogrel Bisulfate (Plavix) 75 mg DAILYWBKFT PO 02/16/22 08:00 02/16/22 08:52 Furosemide (Lasix) 40 mg DAILY IVP 02/16/22 09:00 02/16/22 08:52 Potassium Chloride (Klor-Con) 40 meq 1X ONCE PO 02/15/22 15:30 02/15/22 15:45 DC 02/15/22 15:28 Metoprolol Succinate (Toprol Xl) 25 mg DAILY PO 02/16/22 09:00 02/16/22 08:52 Atorvastatin Calcium (Lipitor) 40 mg QHS PO 02/15/22 21:00 02/15/22 20:22 Albuterol/ Ipratropium (Duoneb) 3 ml RTQID NEB 02/15/22 20:00 02/16/22 10:43 Duloxetine HCl (Cymbalta) 30 mg BID PO 02/16/22 09:00 02/16/22 08:52 Acetaminophen/ Hydrocodone Bitart (Lortab 5/325) 1 tab PRN Q4HRS PRN PO MILD PAIN, 2ND CHOICE 02/16/22 10:00 02/16/22 10:02 Spironolactone (Aldactone) 25 mg DAILY PO 02/16/22 13:00 02/16/22 12:07 Empaglifozin (Jardiance) 10 mg DAILY PO 02/16/22 13:00 02/16/22 12:08 Justifications for Admission Other Justification HARDEEP ARECHIGA MD February 16, 2022 13:17
--- NOTE | 2022-02-16 14:32 | NUR ---
SS following up with discharge planning. SS reviewed pt chart and discussed with pt RN. Pt is currently on room air. COVID19 negative. Pt had heart cath on 02/15/2022. Pt on IV Lasix and Heparin drip. High Risk PCI scheduled for 02/19/2022. SS will continue to follow for discharge planning.
[2022-02-16] MEDS: HEPARIN 25,000UTS/250ML PREMIX 250 ML IV PRN (14:41)
[2022-02-16 15:00] VITALS: BP 130/80
[2022-02-16 19:19] VITALS: BP 117/78
[2022-02-16] MEDS: ATORVASTATIN CALCIUM 40 MG TABLET. PO SCH (20:14)
[2022-02-16 23:05] VITALS: BP 119/74
[2022-02-17] VITALS (7 sets, daily range): BP systolic 115–174; BP diastolic 64–100
[2022-02-17] MEDS: PANTOPRAZOLE 40 MG TABLET.DR. PO SCH (06:43)
[2022-02-17] MEDS: IPRATRPIUM/ALBUTEROL 0.5/2.5MG 3 ML NEBU. NEB SCH ×4 (07:08→20:29)
[2022-02-17] MEDS: ASPIRIN ENTERIC COATED 81 MG TABLET.DR. PO SCH (08:00)
[2022-02-17] MEDS: INSULIN LISPRO 300 UNITS/3 ML VIAL. SQ SCH ×3 (08:00→17:00)
[2022-02-17] MEDS: SENNOSIDES/DOCUSATE 8.6/50MG TABLET. PO SCH ×2 (09:06→19:52)
[2022-02-17] MEDS: CLOPIDOGREL BISULFATE 75 MG TABLET PO SCH (09:06)
[2022-02-17] MEDS: SPIRONOLACTONE 25 MG TABLET PO SCH (09:06)
[2022-02-17] MEDS: DULoxetine HCL 30 MG CAPSULE.DR PO SCH ×2 (09:06→19:53)
[2022-02-17] MEDS: METOPROLOL SUCC 24HR ER 25 MG TAB.ER.24H. PO SCH (09:07)
[2022-02-17] MEDS: EMPAGLIFLOZIN 10 MG TABLET. PO SCH (09:07)
[2022-02-17] MEDS: FUROSEMIDE 40 MG/4 ML VIAL. IVP SCH (09:09)
[2022-02-17] MEDS: HEPARIN 25,000UTS/250ML PREMIX 250 ML IV PRN (12:38)
--- NOTE | 2022-02-17 12:48 | PDOC ---
[facility] PROGRESS NOTE Date of Service DOS: DATE: 02/17/22 TIME: 12:46 Chief Complaint Chief Complaint Chest pain Systolic and diastolic CHF DM2 HTN History of Present Illness History of Present Illness 02/17: Patient seen and evaluated. She denies chest pain currently. Plan for high risk PCI on Saturday. Continue heparin gtt. 02/16: Patient seen and evaluated with family at bedside. She reports some pain in her left hip, states from sitting. Had LCH yesterday that showed acute on chronic systolic and diastolic heart failure, two-vessel coronary artery disease. Plan for high risk PCI for severe RCA calcification with possible orbital atherectomy on Saturday. On heparin gtt. Continue secondary measures, aspirin, Plavix. Vitals/I&O Vitals/I&O: Vital Signs Date Time Temp Pulse Resp B/P (MAP) Pulse Ox O2 Delivery O2 Flow Rate FiO2 02/17/22 11:11 97 Room Air 02/17/22 10:55 97.3 89 20 130/75 (93) 97.3 02/17/22 06:47 2.0 I & O 02/16/22 02/16/22 02/17/22 15:00 23:00 07:00 Intake Total 310 ml 320 ml Output Total 400 ml Balance 310 ml 320 ml -400 ml Physical Exam General: Alert, Oriented X3, Cooperative, No acute distress Heart: Regular rate (SR), Normal S1, Normal S2, Other (2/6 systolic apical murmur) Lungs: Crackles Abdomen: Soft, No tenderness Extremities: No cyanosis, Other (trace LE edema) Skin: No breakdown, No significant lesion Labs Labs: Laboratory Tests Test 02/16/22 14:25 02/16/22 16:48 02/16/22 20:50 02/17/22 02:50 Heparin Anti-Xa Act, Unfractionated 0.28 IU/mL (0.30-0.70) 0.42 IU/mL (0.30-0.70) 0.34 IU/mL (0.30-0.70) Glucose (Fingerstick) 140 mg/dL (70-99) Test 02/17/22 02:54 02/17/22 06:39 02/17/22 11:15 Glucose (Fingerstick) 119 mg/dL (70-99) 114 mg/dL (70-99) 130 mg/dL (70-99) Comment Review of Relevant I have reviewed the following items jerad (where applicable) has been applied. Medications: Current Medications Medications (Trade) Dose Ordered Sig/Aura Route PRN Reason Start Time Stop Time Status Last Admin Dose Admin Spironolactone (Aldactone) 25 mg DAILY PO 02/16/22 13:00 02/17/22 09:06 Empaglifozin (Jardiance) 10 mg DAILY PO 02/16/22 13:00 02/17/22 09:07 Justifications for Admission Other Justification HARDEEP ARECHIGA MD February 17, 2022 12:47
--- NOTE | 2022-02-17 13:22 | PDOC ---
PROGRESS NOTES Date of Service DATE: 02/17/22 TIME: 13:20 Subjective Subjective Patient seen and examined She denies chest pain. Objective Objective Vital Signs Date Time Temp Pulse Resp B/P (MAP) Pulse Ox O2 Delivery O2 Flow Rate FiO2 02/17/22 11:11 97 Room Air 02/17/22 10:55 97.3 89 20 130/75 (93) 97.3 02/17/22 06:47 2.0 Intake and Output 02/17/22 07:00 Intake Total 630 ml Output Total 400 ml Balance 230 ml Intake Oral 630 ml Output Urine Total 400 ml # Voids 1 # Bowel Movements 1 Physical Exam Abdomen: Normal bowel sounds Heart: Regular rate General: No acute distress Lungs: Other (Minimally decreased breath sounds) Assessment Assessment 1. NSTEMI: LHC revealed 2VD 2. Hx of HTN: controlled 3. HLP: on home high dose lipitor 4. Subclinical hypothyroidism 5. COPD with continued tobacco use 6. DM2 7. Hx of Vit D def 8. CAD Left main is a large-caliber vessel with normal angiographic appearance LAD is a large-caliber vessel with mild luminal irregularities of up to 20% Left circumflex is a moderate caliber nondominant vessel with a proximal 50% stenosis RCA is a large-caliber dominant vessel with an ostial 99% stenosis. The distal vessel seen to fill antegrade as well as via [id number]-as-[id number] collaterals. 9. Acute on chronic combined diastolic/systolic CHF: compensated 10. Moderate to severe MR 11. Severe Cardiomyopathy: EF at 15% Plan for high risk PCI for severe ostial RCA calcification with possible orbital atherectomy on Saturday. Continuing present treatment including aspirin, Plavix and IV heparin. Comment Review of Relevant I have reviewed the following items jerad (where applicable) has been applied. Labs Laboratory Tests Test 02/15/22 19:23 02/15/22 23:30 02/16/22 00:07 02/16/22 05:50 Glucose (Fingerstick) 173 mg/dL (70-99) 151 mg/dL (70-99) Heparin Anti-Xa Act, Unfractionated 0.15 IU/mL (0.30-0.70) Platelet Count 185 x10^3/uL (140-400) Prothrombin Time 15.8 SEC (11.7-14.0) Prothromb Time International Ratio 1.3 (0.8-1.1) Sodium Level 137 mmol/L (136-145) Potassium Level 4.9 mmol/L (3.5-5.1) Chloride Level 100 mmol/L (98-107) Carbon Dioxide Level 21 mmol/L (21-32) Anion Gap 16 (6-14) Blood Urea Nitrogen 12 mg/dL (7-20) Creatinine 0.9 mg/dL (0.6-1.0) Estimated GFR (Cockcroft-Gault) 62.1 Glucose Level 150 mg/dL (70-99) Calcium Level 9.7 mg/dL (8.5-10.1) Magnesium Level 2.0 mg/dL (1.8-2.4) Test 02/16/22 05:55 02/16/22 06:10 02/16/22 07:52 02/16/22 11:58 Heparin Anti-Xa Act, Unfractionated 0.36 IU/mL (0.30-0.70) Glucose (Fingerstick) 157 mg/dL (70-99) 138 mg/dL (70-99) 195 mg/dL (70-99) Test 02/16/22 14:25 02/16/22 16:48 02/16/22 20:50 02/17/22 02:50 Heparin Anti-Xa Act, Unfractionated 0.28 IU/mL (0.30-0.70) 0.42 IU/mL (0.30-0.70) 0.34 IU/mL (0.30-0.70) Glucose (Fingerstick) 140 mg/dL (70-99) Test 02/17/22 02:54 02/17/22 06:39 02/17/22 11:15 Glucose (Fingerstick) 119 mg/dL (70-99) 114 mg/dL (70-99) 130 mg/dL (70-99) Laboratory Tests Test 02/16/22 14:25 02/16/22 16:48 02/16/22 20:50 02/17/22 02:50 Heparin Anti-Xa Act, Unfractionated 0.28 IU/mL (0.30-0.70) 0.42 IU/mL (0.30-0.70) 0.34 IU/mL (0.30-0.70) Glucose (Fingerstick) 140 mg/dL (70-99) Test 02/17/22 02:54 02/17/22 06:39 02/17/22 11:15 Glucose (Fingerstick) 119 mg/dL (70-99) 114 mg/dL (70-99) 130 mg/dL (70-99) Medications Current Medications Ondansetron HCl (Zofran) 4 mg PRN Q6HRS PRN IVP NAUSEA/VOMITING; Start 02/14/22 at 19:45 Calcium Carbonate/ Glycine (Tums) 500 mg PRN Q3HRS PRN PO UPSET STOMACH; Start 02/14/22 at 19:45 Zolpidem Tartrate (Ambien) 5 mg PRN QHS PRN PO INSOMNIA, MAY REPEAT IN 1HR; Start 02/14/22 at 19:45 Info (Non-Icu Electrolyte Protocol) 1 ea PRN DAILY PRN MC SEE COMMENTS; Start 02/14/22 at 19:45 Oxycodone/ Acetaminophen (Percocet 5/325) 1 tab PRN Q4HRS PRN PO MILD PAIN, 1ST CHOICE Last administered on 02/15/22at 23:43; Start 02/14/22 at 19:45 Oxycodone/ Acetaminophen (Percocet 5/325) 2 tab PRN Q4HRS PRN PO MODERATE PAIN, SEVERE PAIN; Start 02/14/22 at 19:45 Acetaminophen (Tylenol) 650 mg PRN Q6HRS PRN PO Headaches, Temp > 101.5F; Start 02/14/22 at 19:45 Senna/Docusate Sodium (Senna Plus) 1 tab BID PO Last administered on 02/17/22at 09:06; Start 02/14/22 at 21:00 Heparin Sodium (Porcine) (Heparin Sodium) 5,000 unit Q8HRS SQ Last administered on 02/15/22at 06:32; Start 02/14/22 at 22:00; Stop 02/15/22 at 15:03; Status DC Citalopram Hydrobromide (CeleXA) 20 mg DAILY PO ; Start 02/15/22 at 09:00; Stop 02/16/22 at 08:02; Status DC Pantoprazole Sodium (Protonix) 40 mg DAILYAC PO Last administered on 02/17/22at 06:43; Start 02/15/22 at 07:30 Insulin Human Lispro (HumaLOG) 0-5 UNITS TIDWMEALS SQ ; Start 02/15/22 at 09:00 Dextrose (Dextrose 50%-Water Syringe) 12.5 gm PRN Q15MIN PRN IV SEE COMMENTS; Start 02/15/22 at 08:15 Furosemide (Lasix) 40 mg 1X ONCE IVP ; Start 02/15/22 at 09:30; Stop 02/15/22 at 10:57; Status DC Aspirin (Ecotrin) 325 mg 1X ONCE PO Last administered on 02/15/22at 10:44; Start 02/15/22 at 10:30; Stop 02/15/22 at 10:31; Status DC Iodixanol (Visipaque 320) 100 ml STK-MED ONCE .ROUTE ; Start 02/15/22 at 12:32; Stop 02/15/22 at 12:33; Status DC Lidocaine HCl (Xylocaine-Mpf 1% 2ml Vial) 2 ml STK-MED ONCE .ROUTE ; Start 02/15/22 at 12:32; Stop 02/15/22 at 12:33; Status DC Heparin Sodium/ Sodium Chloride 1,000 ml @ As Directed STK-MED ONCE .ROUTE ; Start 02/15/22 at 12:32; Stop 02/15/22 at 12:33; Status DC Fentanyl Citrate (Fentanyl 2ml Vial) 100 mcg STK-MED ONCE .ROUTE ; Start 02/15/22 at 12:37; Stop 02/15/22 at 12:37; Status DC Midazolam HCl (Versed) 2 mg STK-MED ONCE .ROUTE ; Start 02/15/22 at 12:37; Stop 02/15/22 at 12:37; Status DC Heparin Sodium (Porcine) (Heparin Sodium) 10,000 unit STK-MED ONCE .ROUTE ; Start 02/15/22 at 12:37; Stop 02/15/22 at 12:37; Status DC Verapamil HCl (Verapamil) 5 mg STK-MED ONCE .ROUTE ; Start 02/15/22 at 12:37; Stop 02/15/22 at 12:37; Status DC Nitroglycerin (Nitroglycerin) 200 mcg STK-MED ONCE .ROUTE ; Start 02/15/22 at 12:37; Stop 02/15/22 at 12:37; Status DC Nitroglycerin (Nitroglycerin) 200 mcg 1X ONCE IART Last administered on 02/15/22 13:24; Start 02/15/22 at 13:30; Stop 02/15/22 at 13:31; Status DC Verapamil HCl (Verapamil) 2.5 mg 1X ONCE IART Last administered on 02/15/22 13:24; Start 02/15/22 at 13:30; Stop 02/15/22 at 13:31; Status DC Heparin Sodium (Porcine) (Heparin Sodium) 2,500 unit 1X ONCE IART Last administered on 02/15/22 13:25; Start 02/15/22 at 13:30; Stop 02/15/22 at 13:31; Status DC Heparin Sodium/ Sodium Chloride (HEPARIN for ARTERIAL LINE FLUSH) 1,000 unit 1X ONCE IART Last administered on 02/15/22 13:24; Start 02/15/22 at 13:30; Stop 02/15/22 at 13:31; Status DC Midazolam HCl (Versed) 1 mg 1X ONCE IV Last administered on 02/15/22 12:55; Start 02/15/22 at 13:30; Stop 02/15/22 at 13:31; Status DC Fentanyl Citrate (Fentanyl 2ml Vial) 50 mcg 1X ONCE IV Last administered on 02/15/22 12:55; Start 02/15/22 at 13:30; Stop 02/15/22 at 13:31; Status DC Lidocaine HCl (Xylocaine-Mpf 1% 2ml Vial) 2 ml 1X ONCE INJ Last administered on 02/15/22 13:24; Start 02/15/22 at 13:30; Stop 02/15/22 at 13:31; Status DC Heparin Sodium/ Dextrose 250 ml @ 8.568 mls/ hr CONT PRN IV PER PROTOCOL Last administered on 02/17/22 12:38; Start 02/15/22 at 13:30 Heparin Sodium (Porcine) (Heparin Sodium) 1,800 unit PRN Q6HRS PRN IV FOR UFH LEVEL LESS THAN 0.2 Last administered on 02/16/22at 00:46; Start 02/15/22 at 13:30 Aspirin (Ecotrin) 81 mg DAILYWBKFT PO Last administered on 02/16/22at 08:51; St art 02/16/22 at 08:00 Clopidogrel Bisulfate (Plavix) 75 mg 1X ONCE PO Last administered on 02/15/22 15:29; Start 02/15/22 at 15:30; Stop 02/15/22 at 15:45; Status DC Clopidogrel Bisulfate (Plavix) 75 mg DAILYWBKFT PO Last administered on 02/17/22 09:06; Start 02/16/22 at 08:00 Furosemide (Lasix) 40 mg DAILY IVP Last administered on 02/17/22 09:09; Start 02/16/22 at 09:00 Potassium Chloride (Klor-Con) 40 meq 1X ONCE PO Last administered on 02/15/22 15:28; Start 02/15/22 at 15:30; Stop 02/15/22 at 15:45; Status DC Metoprolol Succinate (Toprol Xl) 25 mg DAILY PO Last administered on 02/17/22 09:07; Start 02/16/22 at 09:00 Atorvastatin Calcium (Lipitor) 40 mg QHS PO Last administered on 02/16/22 20:14; Start 02/15/22 at 21:00 Albuterol/ Ipratropium (Duoneb) 3 ml RTQID NEB Last administered on 02/17/22 11:11; Start 02/15/22 at 20:00 Duloxetine HCl (Cymbalta) 30 mg BID PO Last administered on 02/17/22 09:06; Start 02/16/22 at 09:00 Acetaminophen/ Hydrocodone Bitart (Lortab 5/325) 1 tab PRN Q4HRS PRN PO MILD PAIN, 2ND CHOICE Last administered on 02/16/22at 20:20; Start 02/16/22 at 10:00 Spironolactone (Aldactone) 25 mg DAILY PO Last administered on 02/17/22 09:06; Start 02/16/22 at 13:00 Empaglifozin (Jardiance) 10 mg DAILY PO Last administered on 02/17/22 09:07; Start 02/16/22 at 13:00 Active Scripts Active Reported Duoneb 0.5-3(2.5) Mg/3 Ml (Albuterol/Ipratropium) 3 Ml Ampul.neb 3 Ml NEB QID Advair 250-50 Diskus (Fluticasone/Salmeterol) 1 Each Disk.w.dev 1 Puff PO BID Duloxetine Hcl 30 Mg Capsule.dr 1 Cap PO BID Proair Hfa (Albuterol Sulfate) 8.5 Gm Hfa.aer.ad 8.5 Gm INH Q6H Metformin Hcl 500 Mg Tablet 1 Tab PO DAILY Atorvastatin Calcium 80 Mg Tablet 1 Tab PO DAILY Prilosec Otc (Omeprazole Magnesium) 20 Mg Tablet.dr 40 Mg PO DAILY Vitals/I & O Vital Sign - Last 24 Hours 02/16/22 02/16/22 02/16/22 02/16/22 15:00 15:24 19:19 20:04 Temp 98.4 98.4 98.4 98.4 Pulse 81 80 Resp 20 20 B/P (MAP) 130/80 (97) 117/78 (91) Pulse Ox 91 97 92 O2 Delivery Nasal Cannula Room Air Nasal Cannula Room Air O2 Flow Rate 2.0 02/16/22 02/16/22 02/16/22 02/17/22 20:20 20:43 23:05 02:58 Temp 97.8 98.0 97.8 98.0 Pulse 89 80 Resp 20 20 B/P (MAP) 119/74 (89) 174/100 (124) Pulse Ox 100 98 97 O2 Delivery Room Air Room Air Nasal Cannula Nasal Cannula O2 Flow Rate 2.0 2.0 02/17/22 02/17/22 02/17/22 02/17/22 04:44 06:47 07:14 09:07 Temp 98.1 98.1 Pulse 89 87 87 Resp 20 B/P (MAP) 127/74 (91) 122/70 (87) 122/70 Pulse Ox 92 98 O2 Delivery Nasal Cannula Room Air O2 Flow Rate 2.0 02/17/22 02/17/22 10:55 11:11 Temp 97.3 97.3 Pulse 89 Resp 20 B/P (MAP) 130/75 (93) Pulse Ox 97 97 O2 Delivery Room Air Room Air Intake and Output 02/16/22 02/16/22 02/17/22 15:00 23:00 07:00 Intake Total 310 ml 320 ml Output Total 400 ml Balance 310 ml 320 ml -400 ml Justifications for Admission Other Justification REGINA MYLES MD February 17, 2022 13:22
[2022-02-17] MEDS: ATORVASTATIN CALCIUM 40 MG TABLET. PO SCH (19:51)
[2022-02-17] MEDS: HYDROcodone/APAP 5/325MG 1 TAB TABLET PO PRN (19:52)
[2022-02-18 03:04] VITALS: BP 114/65
[2022-02-18] MEDS: PANTOPRAZOLE 40 MG TABLET.DR. PO SCH (05:14)
[2022-02-18] MEDS: IPRATRPIUM/ALBUTEROL 0.5/2.5MG 3 ML NEBU. NEB SCH ×4 (06:14→17:54)
[2022-02-18 07:00] VITALS: BP 130/68
[2022-02-18] MEDS: ASPIRIN ENTERIC COATED 81 MG TABLET.DR. PO SCH (08:00)
[2022-02-18] MEDS: INSULIN LISPRO 300 UNITS/3 ML VIAL. SQ SCH ×3 (08:00→17:00)
[2022-02-18] MEDS: DULoxetine HCL 30 MG CAPSULE.DR PO SCH ×2 (08:02→21:02)
[2022-02-18] MEDS: SENNOSIDES/DOCUSATE 8.6/50MG TABLET. PO SCH ×2 (08:02→21:02)
[2022-02-18] MEDS: EMPAGLIFLOZIN 10 MG TABLET. PO SCH (08:02)
[2022-02-18] MEDS: METOPROLOL SUCC 24HR ER 25 MG TAB.ER.24H. PO SCH (08:02)
[2022-02-18] MEDS: CLOPIDOGREL BISULFATE 75 MG TABLET PO SCH (08:03)
[2022-02-18] MEDS: SPIRONOLACTONE 25 MG TABLET PO SCH (08:03)
[2022-02-18] MEDS: FUROSEMIDE 40 MG/4 ML VIAL. IVP SCH (08:05)
[2022-02-18] MEDS: HEPARIN 25,000UTS/250ML PREMIX 250 ML IV PRN (08:14)
[2022-02-18 11:00] VITALS: BP 119/70
[2022-02-18 11:28] LABS: CALCIUM 9.2 mg/dL (8.5-10.1); POTASSIUM 3.3 mmol/L (3.5-5.1)
--- NOTE | 2022-02-18 14:06 | PDOC ---
PROGRESS NOTES Date of Service DATE: 02/18/22 TIME: 14:04 Subjective Subjective Patient seen and examined Objective Objective Vital Signs Date Time Temp Pulse Resp B/P (MAP) Pulse Ox O2 Delivery O2 Flow Rate FiO2 02/18/22 11:00 97.7 79 17 119/70 (86) 96 Nasal Cannula 2.0 97.7 Intake and Output 02/18/22 07:00 Intake Total 1001 ml Output Total 3475 ml Balance -2474 ml Intake Oral 880 ml IV Total 121 ml Output Urine Total 3475 ml # Bowel Movements 1 Physical Exam Abdomen: Normal bowel sounds Heart: Regular rate General: No acute distress Lungs: Clear to auscultation Assessment Assessment 1. NSTEMI: LHC revealed 2VD as below. 2. Hx of HTN: controlled 3. HLP: on home high dose lipitor 4. Subclinical hypothyroidism 5. COPD with continued tobacco use 6. DM2 7. Hx of Vit D def 8. CAD Left main is a large-caliber vessel with normal angiographic appearance LAD is a large-caliber vessel with mild luminal irregularities of up to 20% Left circumflex is a moderate caliber nondominant vessel with a proximal 50% stenosis RCA is a large-caliber dominant vessel with an ostial 99% stenosis. The distal vessel seen to fill antegrade as well as via [id number]-[id number] collaterals. 9. Acute on chronic combined diastolic/systolic CHF: compensated 10. Moderate to severe MR 11. Severe Cardiomyopathy: EF at 15% Plan for high risk PCI for severe ostial RCA calcification with possible orbital atherectomy on Saturday. Continuing present treatment including aspirin, Plavix and IV heparin. Replacing potassium. Comment Review of Relevant I have reviewed the following items jerad (where applicable) has been applied. Labs Laboratory Tests Test 02/16/22 14:25 02/16/22 16:48 02/16/22 20:50 02/17/22 02:50 Heparin Anti-Xa Act, Unfractionated 0.28 IU/mL (0.30-0.70) 0.42 IU/mL (0.30-0.70) 0.34 IU/mL (0.30-0.70) Glucose (Fingerstick) 140 mg/dL (70-99) Test 02/17/22 02:54 02/17/22 06:39 02/17/22 11:15 02/17/22 18:27 Glucose (Fingerstick) 119 mg/dL (70-99) 114 mg/dL (70-99) 130 mg/dL (70-99) 131 mg/dL (70-99) Test 02/18/22 00:24 02/18/22 04:00 02/18/22 06:14 02/18/22 10:46 Glucose (Fingerstick) 119 mg/dL (70-99) 105 mg/dL (70-99) Heparin Anti-Xa Act, Unfractionated 0.21 IU/mL (0.30-0.70) 0.22 IU/mL (0.30-0.70) Sodium Level 136 mmol/L (136-145) Potassium Level 3.3 mmol/L (3.5-5.1) Chloride Level 97 mmol/L (98-107) Carbon Dioxide Level 26 mmol/L (21-32) Anion Gap 13 (6-14) Blood Urea Nitrogen 15 mg/dL (7-20) Creatinine 1.0 mg/dL (0.6-1.0) Estimated GFR (Cockcroft-Gault) 55.0 Glucose Level 134 mg/dL (70-99) Calcium Level 9.2 mg/dL (8.5-10.1) Test 02/18/22 11:14 Glucose (Fingerstick) 125 mg/dL (70-99) Laboratory Tests Test 02/17/22 18:27 02/18/22 00:24 02/18/22 04:00 02/18/22 06:14 Glucose (Fingerstick) 131 mg/dL (70-99) 119 mg/dL (70-99) 105 mg/dL (70-99) Heparin Anti-Xa Act, Unfractionated 0.21 IU/mL (0.30-0.70) Test 02/18/22 10:46 02/18/22 11:14 Heparin Anti-Xa Act, Unfractionated 0.22 IU/mL (0.30-0.70) Sodium Level 136 mmol/L (136-145) Potassium Level 3.3 mmol/L (3.5-5.1) Chloride Level 97 mmol/L (98-107) Carbon Dioxide Level 26 mmol/L (21-32) Anion Gap 13 (6-14) Blood Urea Nitrogen 15 mg/dL (7-20) Creatinine 1.0 mg/dL (0.6-1.0) Estimated GFR (Cockcroft-Gault) 55.0 Glucose Level 134 mg/dL (70-99) Calcium Level 9.2 mg/dL (8.5-10.1) Glucose (Fingerstick) 125 mg/dL (70-99) Medications Current Medications Ondansetron HCl (Zofran) 4 mg PRN Q6HRS PRN IVP NAUSEA/VOMITING; Start 02/14/22 at 19:45 Calcium Carbonate/ Glycine (Tums) 500 mg PRN Q3HRS PRN PO UPSET STOMACH; Start 02/14/22 at 19:45 Zolpidem Tartrate (Ambien) 5 mg PRN QHS PRN PO INSOMNIA, MAY REPEAT IN 1HR; Start 02/14/22 at 19:45 Info (Non-Icu Electrolyte Protocol) 1 ea PRN DAILY PRN MC SEE COMMENTS; Start 02/14/22 at 19:45 Oxycodone/ Acetaminophen (Percocet 5/325) 1 tab PRN Q4HRS PRN PO MILD PAIN, 1ST CHOICE Last administered on 02/15/22at 23:43; Start 02/14/22 at 19:45 Oxycodone/ Acetaminophen (Percocet 5/325) 2 tab PRN Q4HRS PRN PO MODERATE PAIN, SEVERE PAIN; Start 02/14/22 at 19:45 Acetaminophen (Tylenol) 650 mg PRN Q6HRS PRN PO Headaches, Temp > 101.5F; Start 02/14/22 at 19:45 Senna/Docusate Sodium (Senna Plus) 1 tab BID PO Last administered on 02/18/22at 08:02; Start 02/14/22 at 21:00 Heparin Sodium (Porcine) (Heparin Sodium) 5,000 unit Q8HRS SQ Last administered on 02/15/22at 06:32; Start 02/14/22 at 22:00; Stop 02/15/22 at 15:03; Status DC Citalopram Hydrobromide (CeleXA) 20 mg DAILY PO ; Start 02/15/22 at 09:00; Stop 02/16/22 at 08:02; Status DC Pantoprazole Sodium (Protonix) 40 mg DAILYAC PO Last administered on 02/18/22at 05:14; Start 02/15/22 at 07:30 Insulin Human Lispro (HumaLOG) 0-5 UNITS TIDWMEALS SQ ; Start 02/15/22 at 09:00 Dextrose (Dextrose 50%-Water Syringe) 12.5 gm PRN Q15MIN PRN IV SEE COMMENTS; Start 02/15/22 at 08:15 Furosemide (Lasix) 40 mg 1X ONCE IVP ; Start 02/15/22 at 09:30; Stop 02/15/22 at 10:57; Status DC Aspirin (Ecotrin) 325 mg 1X ONCE PO Last administered on 02/15/22at 10:44; Start 02/15/22 at 10:30; Stop 02/15/22 at 10:31; Status DC Iodixanol (Visipaque 320) 100 ml STK-MED ONCE .ROUTE ; Start 02/15/22 at 12:32; Stop 02/15/22 at 12:33; Status DC Lidocaine HCl (Xylocaine-Mpf 1% 2ml Vial) 2 ml STK-MED ONCE .ROUTE ; Start 02/15/22 at 12:32; Stop 02/15/22 at 12:33; Status DC Heparin Sodium/ Sodium Chloride 1,000 ml @ As Directed STK-MED ONCE .ROUTE ; Start 02/15/22 at 12:32; Stop 02/15/22 at 12:33; Status DC Fentanyl Citrate (Fentanyl 2ml Vial) 100 mcg STK-MED ONCE .ROUTE ; Start 02/15/22 at 12:37; Stop 02/15/22 at 12:37; Status DC Midazolam HCl (Versed) 2 mg STK-MED ONCE .ROUTE ; Start 02/15/22 at 12:37; Stop 02/15/22 at 12:37; Status DC Heparin Sodium (Porcine) (Heparin Sodium) 10,000 unit STK-MED ONCE .ROUTE ; Start 02/15/22 at 12:37; Stop 02/15/22 at 12:37; Status DC Verapamil HCl (Verapamil) 5 mg STK-MED ONCE .ROUTE ; Start 02/15/22 at 12:37; Stop 02/15/22 at 12:37; Status DC Nitroglycerin (Nitroglycerin) 200 mcg STK-MED ONCE .ROUTE ; Start 02/15/22 at 12:37; Stop 02/15/22 at 12:37; Status DC Nitroglycerin (Nitroglycerin) 200 mcg 1X ONCE IART Last administered on 02/15/22 13:24; Start 02/15/22 at 13:30; Stop 02/15/22 at 13:31; Status DC Verapamil HCl (Verapamil) 2.5 mg 1X ONCE IART Last administered on 02/15/22 13:24; Start 02/15/22 at 13:30; Stop 02/15/22 at 13:31; Status DC Heparin Sodium (Porcine) (Heparin Sodium) 2,500 unit 1X ONCE IART Last administered on 02/15/22 13:25; Start 02/15/22 at 13:30; Stop 02/15/22 at 13:31; Status DC Heparin Sodium/ Sodium Chloride (HEPARIN for ARTERIAL LINE FLUSH) 1,000 unit 1X ONCE IART Last administered on 02/15/22 13:24; Start 02/15/22 at 13:30; Stop 02/15/22 at 13:31; Status DC Midazolam HCl (Versed) 1 mg 1X ONCE IV Last administered on 02/15/22 12:55; Start 02/15/22 at 13:30; Stop 02/15/22 at 13:31; Status DC Fentanyl Citrate (Fentanyl 2ml Vial) 50 mcg 1X ONCE IV Last administered on 02/15/22 12:55; Start 02/15/22 at 13:30; Stop 02/15/22 at 13:31; Status DC Lidocaine HCl (Xylocaine-Mpf 1% 2ml Vial) 2 ml 1X ONCE INJ Last administered on 02/15/22 13:24; Start 02/15/22 at 13:30; Stop 02/15/22 at 13:31; Status DC Heparin Sodium/ Dextrose 250 ml @ 8.568 mls/ hr CONT PRN IV PER PROTOCOL Last administered on 02/18/22 08:14; Start 02/15/22 at 13:30 Heparin Sodium (Porcine) (Heparin Sodium) 1,800 unit PRN Q6HRS PRN IV FOR UFH LEVEL LESS THAN 0.2 Last administered on 02/16/22 00:46; Start 02/15/22 at 13:30 Aspirin (Ecotrin) 81 mg DAILYWBKFT PO Last administered on 02/16/22at 08:51; Start 02/16/22 at 08:00 Clopidogrel Bisulfate (Plavix) 75 mg 1X ONCE PO Last administered on 02/15/22 15:29; Start 02/15/22 at 15:30; Stop 02/15/22 at 15:45; Status DC Clopidogrel Bisulfate (Plavix) 75 mg DAILYWBKFT PO Last administered on 02/18/22 08:03; Start 02/16/22 at 08:00 Furosemide (Lasix) 40 mg DAILY IVP Last administered on 02/18/22 08:05; Start 02/16/22 at 09:00 Potassium Chloride (Klor-Con) 40 meq 1X ONCE PO Last administered on 02/15/22 15:28; Start 02/15/22 at 15:30; Stop 02/15/22 at 15:45; Status DC Metoprolol Succinate (Toprol Xl) 25 mg DAILY PO Last administered on 02/18/22 08:02; Start 02/16/22 at 09:00 Atorvastatin Calcium (Lipitor) 40 mg QHS PO Last administered on 02/17/22 19:51; Start 02/15/22 at 21:00 Albuterol/ Ipratropium (Duoneb) 3 ml RTQID NEB Last administered on 02/18/22 10:33; Start 02/15/22 at 20:00 Duloxetine HCl (Cymbalta) 30 mg BID PO Last administered on 02/18/22 08:02; Start 02/16/22 at 09:00 Acetaminophen/ Hydrocodone Bitart (Lortab 5/325) 1 tab PRN Q4HRS PRN PO MILD PAIN, 2ND CHOICE Last administered on 02/17/22 19:52; Start 02/16/22 at 10:00 Spironolactone (Aldactone) 25 mg DAILY PO Last administered on 02/18/22 08:03; Start 02/16/22 at 13:00 Empaglifozin (Jardiance) 10 mg DAILY PO Last administered on 02/18/22 08:02; Start 02/16/22 at 13:00 Active Scripts Active Reported Duoneb 0.5-3(2.5) Mg/3 Ml (Albuterol/Ipratropium) 3 Ml Ampul.neb 3 Ml NEB QID Advair 250-50 Diskus (Fluticasone/Salmeterol) 1 Each Disk.w.dev 1 Puff PO BID Duloxetine Hcl 30 Mg Capsule.dr 1 Cap PO BID Proair Hfa (Albuterol Sulfate) 8.5 Gm Hfa.aer.ad 8.5 Gm INH Q6H Metformin Hcl 500 Mg Tablet 1 Tab PO DAILY Atorvastatin Calcium 80 Mg Tablet 1 Tab PO DAILY Prilosec Otc (Omeprazole Magnesium) 20 Mg Tablet.dr 40 Mg PO DAILY Vitals/I & O Vital Sign - Last 24 Hours 02/17/22 02/17/22 02/17/22 02/17/22 14:38 15:28 18:47 19:10 Temp 98.2 97.5 98.2 97.5 Pulse 82 81 Resp 17 16 B/P (MAP) 121/73 (89) 115/66 (82) Pulse Ox 97 99 98 O2 Delivery Room Air Room Air Room Air Room Air 02/17/22 02/17/22 02/17/22 02/17/22 19:52 20:22 20:29 23:37 Temp 98.1 98.1 Pulse 80 Resp 16 B/P (MAP) 125/64 (84) Pulse Ox 100 96 O2 Delivery Room Air Room Air O2 Flow Rate 2.0 2.0 02/18/22 02/18/22 02/18/22 02/18/22 03:04 06:13 07:00 08:00 Temp 98.0 97.5 98.0 97.5 Pulse 80 81 Resp 16 16 B/P (MAP) 114/65 (81) 130/68 (88) Pulse Ox 98 98 99 O2 Delivery Nasal Cannula Nasal Cannula Nasal Cannula Room Air O2 Flow Rate 2.0 2.0 2.0 02/18/22 02/18/22 02/18/22 08:02 10:33 11:00 Temp 97.7 97.7 Pulse 81 79 Resp 17 B/P (MAP) 130/68 119/70 (86) Pulse Ox 97 96 O2 Delivery Nasal Cannula Nasal Cannula O2 Flow Rate 2.0 2.0 Intake and Output 02/17/22 02/17/22 02/18/22 15:00 23:00 07:00 Intake Total 180 ml 200 ml 621 ml Output Total 1800 ml 1100 ml 575 ml Balance -1620 ml -900 ml 46 ml Justifications for Admission Other Justification REGINA MYLES MD February 18, 2022 14:06
--- NOTE | 2022-02-18 14:24 | PDOC ---
[facility] [facility] PROGRESS NOTE Date of Service DOS: DATE: 02/18/22 TIME: 14:22 Chief Complaint Chief Complaint Chest pain Systolic and diastolic CHF DM2 HTN History of Present Illness History of Present Illness 02/18: Patient without chest pain. She does report some mild shortness of breath, breathing on room air. Plan for high risk PCI tomorrow. Left circumflex with 50% stenosis, RCA with 99% stenosis. She has questions about what time her heart cath is scheduled for tomorrow. Continue heparin gtt. 02/17: Patient seen and evaluated. She denies chest pain currently. Plan for high risk PCI on Saturday. Continue heparin gtt. 02/16: Patient seen and evaluated with family at bedside. She reports some pain in her left hip, states from sitting. Had LCH yesterday that showed acute on chronic systolic and diastolic heart failure, two-vessel coronary artery disease. Plan for high risk PCI for severe RCA calcification with possible orbital atherectomy on Saturday. On heparin gtt. Continue secondary measures, aspirin, Plavix. Vitals/I&O Vitals/I&O: Vital Signs Date Time Temp Pulse Resp B/P (MAP) Pulse Ox O2 Delivery O2 Flow Rate FiO2 02/18/22 11:00 97.7 79 17 119/70 (86) 96 Nasal Cannula 2.0 97.7 I & O 02/17/22 02/17/22 02/18/22 15:00 23:00 07:00 Intake Total 180 ml 200 ml 621 ml Output Total 1800 ml 1100 ml 575 ml Balance -1620 ml -900 ml 46 ml Physical Exam General: No acute distress Heart: Regular rate Lungs: Crackles Abdomen: Normal bowel sounds Extremities: No cyanosis, Other (trace LE edema) Skin: No breakdown, No significant lesion Labs Labs: Laboratory Tests Test 02/17/22 18:27 02/18/22 00:24 02/18/22 04:00 02/18/22 06:14 Glucose (Fingerstick) 131 mg/dL (70-99) 119 mg/dL (70-99) 105 mg/dL (70-99) Heparin Anti-Xa Act, Unfractionated 0.21 IU/mL (0.30-0.70) Test 02/18/22 10:46 02/18/22 11:14 Heparin Anti-Xa Act, Unfractionated 0.22 IU/mL (0.30-0.70) Sodium Level 136 mmol/L (136-145) Potassium Level 3.3 mmol/L (3.5-5.1) Chloride Level 97 mmol/L (98-107) Carbon Dioxide Level 26 mmol/L (21-32) Anion Gap 13 (6-14) Blood Urea Nitrogen 15 mg/dL (7-20) Creatinine 1.0 mg/dL (0.6-1.0) Estimated GFR (Cockcroft-Gault) 55.0 Glucose Level 134 mg/dL (70-99) Calcium Level 9.2 mg/dL (8.5-10.1) Glucose (Fingerstick) 125 mg/dL (70-99) Comment Review of Relevant I have reviewed the following items jerad (where applicable) has been applied. Justifications for Admission Other Justification HARDEEP ARECHIGA MD February 18, 2022 14:24
[2022-02-18 14:36] VITALS: BP 113/61
[2022-02-18] MEDS ORDERED: POTASSIUM CHLORIDE 20 MEQ TABLET.ER. PO ONE (15:00)
[2022-02-18 19:32] VITALS: BP 118/65
[2022-02-18] MEDS: ATORVASTATIN CALCIUM 40 MG TABLET. PO SCH (21:02)
[2022-02-18] MEDS: IV NORMAL SALINE 1000ML BAG 1,000 ML IV SCH (21:32)
[2022-02-18 22:20] VITALS: BP 123/64
[2022-02-19] VITALS (7 sets, daily range): BP systolic 108–132; BP diastolic 64–84
[2022-02-19] MEDS: HEPARIN 25,000UTS/250ML PREMIX 250 ML IV PRN ×2 (00:14→22:36)
[2022-02-19 06:43] LABS: CALCIUM 9.3 mg/dL (8.5-10.1); CREATININE 0.9 mg/dL (0.6-1.0); GFR 62.1; POTASSIUM 3.2 mmol/L (3.5-5.1)
[2022-02-19 06:49] LABS: BASO % 1 % (0-3); EOS # 0.1 x10^3/uL (0.0-0.7); EOS % 1 % (0-3); LYMPH # 1.3 x10^3/uL (1.0-4.8); LYMPH % 19 % (24-48); MEAN CORPUSCULAR HEMOGLOBIN 30 pg (25-35); MEAN CORPUSCULAR HGB CONC 33 g/dL (31-37); MEAN CORPUSCULAR VOLUME 90 fL (79-100); MONO # 0.7 x10^3/uL (0.0-1.1); MONO % 11 % (0-9); NEUT # 4.7 x10^3/uL (1.8-7.7); NEUT % 69 % (31-73); PLATELET COUNT 147 x10^3/uL (140-400); RED BLOOD COUNT 4.32 x10^6/uL (3.50-5.40); RED CELL DISTRIBUTION WIDTH 15.6 % (11.5-14.5); WHITE BLOOD COUNT 6.9 x10^3/uL (4.0-11.0)
[2022-02-19] MEDS: PANTOPRAZOLE 40 MG TABLET.DR. PO SCH (07:30)
[2022-02-19] MEDS: IPRATRPIUM/ALBUTEROL 0.5/2.5MG 3 ML NEBU. NEB SCH ×4 (07:31→20:30)
[2022-02-19] MEDS: INSULIN LISPRO 300 UNITS/3 ML VIAL. SQ SCH ×3 (08:00→17:00)
[2022-02-19] MEDS ORDERED: POTASSIUM CHLORIDE 20 MEQ TABLET.ER. PO ONE ×3 (08:03→18:30)
--- NOTE | 2022-02-19 08:11 | PDOC ---
[facility] [facility] PROGRESS NOTE Date of Service DOS: DATE: 02/19/22 TIME: 08:10 Chief Complaint Chief Complaint Chest pain Systolic and diastolic CHF DM2 HTN History of Present Illness History of Present Illness 02/16: Patient seen and evaluated with family at bedside. She reports some pain in her left hip, states from sitting. Had LCH yesterday that showed acute on chronic systolic and diastolic heart failure, two-vessel coronary artery disease. Plan for high risk PCI for severe RCA calcification with possible orbital atherectomy on Saturday. On heparin gtt. Continue secondary measures, aspirin, Plavix. 02/17: Patient seen and evaluated. She denies chest pain currently. Plan for high risk PCI on Saturday. Continue heparin gtt. 02/18: Patient without chest pain. She does report some mild shortness of breath, breathing on room air. Plan for high risk PCI tomorrow. Left circumflex with 50% stenosis, RCA with 99% stenosis. She has questions about what time her heart cath is scheduled for tomorrow. Cont heparin gtt. 02/19: Has some shortness of breath this morning. Bruising on bilateral arms. N.p.o. for cardiac cath and angioplasty this morning possible arthrotomy. She wants to have her present when she goes to [employer]. Vitals/I&O Vitals/I&O: Vital Signs Date Time Temp Pulse Resp B/P (MAP) Pulse Ox O2 Delivery O2 Flow Rate FiO2 02/19/22 07:31 97 Room Air 02/19/22 07:00 97.3 80 18 131/73 (92) 97.3 02/19/22 02:17 2.0 I & O 02/18/22 02/18/22 02/19/22 15:00 23:00 07:00 Intake Total 850 ml 300 ml 250 ml Output Total 2700 ml 300 ml Balance -1850 ml 300 ml -50 ml Physical Exam General: No acute distress Heart: Regular rate Lungs: Crackles Abdomen: Normal bowel sounds Extremities: No cyanosis, Other (trace LE edema) Skin: No breakdown, No significant lesion Labs Labs: Laboratory Tests Test 02/18/22 10:46 02/18/22 11:14 02/18/22 18:03 02/18/22 18:21 Heparin Anti-Xa Act, Unfractionated 0.22 IU/mL (0.30-0.70) 0.38 IU/mL (0.30-0.70) Sodium Level 136 mmol/L (136-145) Potassium Level 3.3 mmol/L (3.5-5.1) Chloride Level 97 mmol/L (98-107) Carbon Dioxide Level 26 mmol/L (21-32) Anion Gap 13 (6-14) Blood Urea Nitrogen 15 mg/dL (7-20) Creatinine 1.0 mg/dL (0.6-1.0) Estimated GFR (Cockcroft-Gault) 55.0 Glucose Level 134 mg/dL (70-99) Calcium Level 9.2 mg/dL (8.5-10.1) Glucose (Fingerstick) 125 mg/dL (70-99) 137 mg/dL (70-99) Test 02/19/22 00:00 02/19/22 06:00 02/19/22 07:19 Heparin Anti-Xa Act, Unfractionated 0.38 IU/mL (0.30-0.70) 0.46 IU/mL (0.30-0.70) White Blood Count 6.9 x10^3/uL (4.0-11.0) Red Blood Count 4.32 x10^6/uL (3.50-5.40) Hemoglobin 13.0 g/dL (12.0-15.5) Hematocrit 39.0 % (36.0-47.0) Mean Corpuscular Volume 90 fL (79-100) Mean Corpuscular Hemoglobin 30 pg (25-35) Mean Corpuscular Hemoglobin Concent 33 g/dL (31-37) Red Cell Distribution Width 15.6 % (11.5-14.5) Platelet Count 147 x10^3/uL (140-400) Neutrophils (%) (Auto) 69 % (31-73) Lymphocytes (%) (Auto) 19 % (24-48) Monocytes (%) (Auto) 11 % (0-9) Eosinophils (%) (Auto) 1 % (0-3) Basophils (%) (Auto) 1 % (0-3) Neutrophils # (Auto) 4.7 x10^3/uL (1.8-7.7) Lymphocytes # (Auto) 1.3 x10^3/uL (1.0-4.8) Monocytes # (Auto) 0.7 x10^3/uL (0.0-1.1) Eosinophils # (Auto) 0.1 x10^3/uL (0.0-0.7) Basophils # (Auto) 0.0 x10^3/uL (0.0-0.2) Sodium Level 138 mmol/L (136-145) Potassium Level 3.2 mmol/L (3.5-5.1) Chloride Level 100 mmol/L (98-107) Carbon Dioxide Level 27 mmol/L (21-32) Anion Gap 11 (6-14) Blood Urea Nitrogen 11 mg/dL (7-20) Creatinine 0.9 mg/dL (0.6-1.0) Estimated GFR (Cockcroft-Gault) 62.1 Glucose Level 108 mg/dL (70-99) Calcium Level 9.3 mg/dL (8.5-10.1) Magnesium Level 2.0 mg/dL (1.8-2.4) Glucose (Fingerstick) 109 mg/dL (70-99) Comment Review of Relevant I have reviewed the following items jerad (where applicable) has been applied. Medications: Current Medications Medications (Trade) Dose Ordered Sig/Aura Route PRN Reason Start Time Stop Time Status Last Admin Dose Admin Potassium Chloride (Klor-Con) 20 meq 1X ONCE PO 02/18/22 15:00 02/18/22 15:01 DC 02/18/22 14:36 Sodium Chloride 1,000 ml @ 60 mls/hr [id number] IV 02/19/22 07:30 02/18/22 21:32 Justifications for Admission Other Justification ISACC LAZO MD February 19, 2022 08:11
[2022-02-19] MEDS: CLOPIDOGREL BISULFATE 75 MG TABLET PO SCH (08:17)
[2022-02-19] MEDS: ASPIRIN ENTERIC COATED 81 MG TABLET.DR. PO SCH (08:17)
[2022-02-19] MEDS: METOPROLOL SUCC 24HR ER 25 MG TAB.ER.24H. PO SCH (09:00)
[2022-02-19] MEDS: FUROSEMIDE 40 MG/4 ML VIAL. IVP SCH (09:00)
[2022-02-19] MEDS: EMPAGLIFLOZIN 10 MG TABLET. PO SCH (09:00)
[2022-02-19] MEDS: SPIRONOLACTONE 25 MG TABLET PO SCH (09:00)
[2022-02-19] MEDS: SENNOSIDES/DOCUSATE 8.6/50MG TABLET. PO SCH ×2 (09:00→21:56)
[2022-02-19] MEDS: DULoxetine HCL 30 MG CAPSULE.DR PO SCH ×2 (09:00→21:56)
[2022-02-19 11:03] LABS: PLT ESTIMATE ADEQUATE (ADEQUATE)
[2022-02-19] MEDS ORDERED: LIDOCAINE 1% Multi-Dose 20 ML VIAL. ONE (11:06)
[2022-02-19] MEDS ORDERED: HEPARIN for IV BOLUS 10,000 UNIT/10 ML VIAL. ONE (12:39)
[2022-02-19] MEDS ORDERED: MIDAZOLAM HCL/PF 2 MG/2 ML VIAL. ONE (12:39)
[2022-02-19] MEDS ORDERED: NITROGLYCERIN 200 MCG/2 ML SYRINGE FOR CATH/VASC LAB. ONE (12:39)
[2022-02-19] MEDS ORDERED: VERAPAMIL 5 MG/2 ML VIAL. ONE (12:39)
[2022-02-19] MEDS ORDERED: fentaNYL PF VIAL 100 MCG/2 ML VIAL ONE (12:39)
[2022-02-19] MEDS ORDERED: IODIXANOL 320 MG/ML 100 ML VIAL. ONE ×2 (13:02→14:05)
[2022-02-19] MEDS ORDERED: LIDOCAINE 2%/EPI 1:100,000 20 ML VIAL. ONE (13:44)
[2022-02-19] MEDS ORDERED: LIDOCAINE 1% Multi-Dose 20 ML VIAL. INJ ONE (14:30)
[2022-02-19] MEDS ORDERED: MIDAZOLAM HCL/PF 2 MG/2 ML VIAL. IV ONE (14:30)
[2022-02-19] MEDS ORDERED: HEPARIN for IV BOLUS 10,000 UNIT/10 ML VIAL. IV ONE (14:30)
[2022-02-19] MEDS ORDERED: VERAPAMIL 5 MG/2 ML VIAL. IART ONE (14:30)
[2022-02-19] MEDS ORDERED: NITROGLYCERIN 200 MCG/2 ML SYRINGE FOR CATH/VASC LAB. IART ONE (14:30)
[2022-02-19] MEDS ORDERED: IODIXANOL 320 MG/ML 100 ML VIAL. IART ONE (14:30)
[2022-02-19] MEDS ORDERED: HEPARIN for IV BOLUS 10,000 UNIT/10 ML VIAL. IART ONE (14:30)
[2022-02-19] MEDS ORDERED: fentaNYL PF VIAL 100 MCG/2 ML VIAL IV ONE (14:30)
[2022-02-19] MEDS ORDERED: CONTRAST GIVEN. MC PRN (14:45)
--- NOTE | 2022-02-19 16:17 | NUR ---
SS following up with discharge planning. SS reviewed pt chart and discussed with pt RN. Pt is currently on room air. COVID19 negative. Pt went to [facility] today. Pt on IV Lasix and Heparin drip. Cardiology following. SS will continue to follow for discharge planning.
[2022-02-19] MEDS: ATORVASTATIN CALCIUM 40 MG TABLET. PO SCH (21:56)
[2022-02-19] MEDS: IV NORMAL SALINE 1000ML BAG 1,000 ML IV SCH (23:20)
[2022-02-20 02:09] LABS: HEMOGLOBIN A1C 6.5 % (4.8-5.6)
[2022-02-20 03:03] VITALS: BP 116/70
[2022-02-20 06:07] LABS: CALCIUM 9.4 mg/dL (8.5-10.1); CREATININE 0.8 mg/dL (0.6-1.0); GFR 71.1
[2022-02-20 07:00] VITALS: BP 125/77
[2022-02-20] MEDS: IPRATRPIUM/ALBUTEROL 0.5/2.5MG 3 ML NEBU. NEB SCH ×3 (07:25→15:36)
--- NOTE | 2022-02-20 07:45 | PDOC ---
LAURIE SPEARS [employer] 02/20/22 0745: CARDIO Progress Notes Date and Time Date of Service 02/20/2022 Time of Evaluation 1000 Subjective Subjective: No Chest Pain, No shortness of breath, No Palpitations Vitals Vitals Vital Signs Date Time Temp Pulse Resp B/P (MAP) Pulse Ox O2 Delivery O2 Flow Rate FiO2 02/20/22 07:26 97 Nasal Cannula 2.0 02/20/22 03:03 98.6 91 18 116/70 (85) 98.6 Weight Weight [ ] Input and Output Intake and Output Intake and Output 02/20/22 07:00 Intake Total 200 ml Output Total 200 ml Balance 0 ml Intake Oral 200 ml Output Urine Total 200 ml # Voids 2 Laboratory Labs Laboratory Tests Test 02/19/22 11:02 02/19/22 13:27 02/19/22 14:22 02/19/22 16:51 Glucose (Fingerstick) 111 mg/dL (70-99) 96 mg/dL (70-99) Activated Clotting Time 220 sec (92-181) 186 sec (92-181) Test 02/19/22 21:06 02/20/22 05:10 Glucose (Fingerstick) 135 mg/dL (70-99) Heparin Anti-Xa Act, Unfractionated 0.59 IU/mL (0.30-0.70) Sodium Level 137 mmol/L (136-145) Potassium Level 4.0 mmol/L (3.5-5.1) Chloride Level 101 mmol/L (98-107) Carbon Dioxide Level 24 mmol/L (21-32) Anion Gap 12 (6-14) Blood Urea Nitrogen 11 mg/dL (7-20) Creatinine 0.8 mg/dL (0.6-1.0) Estimated GFR (Cockcroft-Gault) 71.1 Glucose Level 97 mg/dL (70-99) Calcium Level 9.4 mg/dL (8.5-10.1) Physical Exam HEENT: Neck Supple W Full Motion Chest: Symmetric LUNGS: Other (diminished bases) Heart: RRR (SR), murmurs (3/6 systolic murmur to LLS border) Abdomen: Soft N/T Extremities: No Calf Tenderness, Other (1+ bilateral LE pitting edema) Neurology: alert, oriented, follow commands Assessment Assessment 1. NSTEMI: LHC revealed 2VD S/P PCI awaiting report yesterday 2. Hx of HTN: no noted med, controlled 3. HLP: on home high dose lipitor 4. Subclinical hypothyroidism 5. COPD with continued tobacco use 6. DM2: A1C 6.5 7. Hx of Vit D def 8. CAD Left main is a large-caliber vessel with normal angiographic appearance LAD is a large-caliber vessel with mild luminal irregularities of up to 20% Left circumflex is a moderate caliber nondominant vessel with a proximal 50% stenosis RCA is a large-caliber dominant vessel with an ostial 99% stenosis. The distal vessel seen to fill antegrade as well as via [id number] collaterals. 9. Acute on chronic combined diastolic/systolic CHF: better compensated 10. Moderate to severe MR 11. Severe Cardiomyopathy: EF at 15% Recommendations 1. Continue HF optimization. Lifevest prior to DC 2. ASA, plavix. Continue lipitor 3. Lasix therapy.. Start aldactone and jardiance. Monitor BP trend and will consider for entresto as an outpt. Start on losartan 4. Smoking cessation 5. May need outpt referral 6. May DC today, follow up in office as scheduled Justicifation of Admission Dx: Justifications for Admission: Justification of Admission Dx: Yes ALESSANDRO BERGER MD 02/21/22 1221: CARDIO Progress Notes Plan Plan Late entry for 02/20/2022 Patient seen and examined. Agree with above nurse practitioner note. LAURIE SPEARS APRN February 20, 2022 07:45 ALESSANDRO BERGER MD February 21, 2022 12:21
[2022-02-20] MEDS: INSULIN LISPRO 300 UNITS/3 ML VIAL. SQ SCH ×2 (08:00→12:00)
[2022-02-20] MEDS: SENNOSIDES/DOCUSATE 8.6/50MG TABLET. PO SCH (08:52)
[2022-02-20] MEDS: EMPAGLIFLOZIN 10 MG TABLET. PO SCH (08:53)
[2022-02-20] MEDS: DULoxetine HCL 30 MG CAPSULE.DR PO SCH (08:53)
[2022-02-20] MEDS: METOPROLOL SUCC 24HR ER 25 MG TAB.ER.24H. PO SCH (08:53)
[2022-02-20] MEDS: SPIRONOLACTONE 25 MG TABLET PO SCH (08:53)
[2022-02-20] MEDS: PANTOPRAZOLE 40 MG TABLET.DR. PO SCH (08:53)
[2022-02-20] MEDS: CLOPIDOGREL BISULFATE 75 MG TABLET PO SCH (08:53)
[2022-02-20] MEDS: ASPIRIN ENTERIC COATED 81 MG TABLET.DR. PO SCH (08:53)
[2022-02-20] MEDS: FUROSEMIDE 40 MG/4 ML VIAL. IVP SCH (08:54)
[2022-02-20 11:00] VITALS: BP 118/70
[2022-02-20] MEDS ORDERED: LOSARTAN POTASSIUM 25 MG TABLET. PO SCH (11:00)
[2022-02-20] MEDS ORDERED: FUROSEMIDE 40 MG TABLET. PO SCH (11:00)
--- NOTE | 2022-02-20 11:09 | PDOC ---
[employer] PROGRESS NOTE Date of Service DOS: DATE: 02/20/22 TIME: 11:04 Chief Complaint Chief Complaint NSTEMI -RCA with 90% ostial stenosis and left circumflex with proximal 50% stenosis LAD and left main with no significant occlusive disease mid LAD with irregularities causing 20% stenosis Systolic and diastolic CHF - EF 15% CAD - RCA stenosis DM2 - a1c 6.5 HTN - now on BB, aldactone, losartan HLD - statin COPD with continued tobacco use Moderate to severe MR Ischemic Cardiomyopathy: EF at 15% History of Present Illness History of Present Illness 02/16: Patient seen and evaluated with family at bedside. She reports some pain in her left hip, states from sitting. Had LCH yesterday that showed acute on chronic systolic and diastolic heart failure, two-vessel coronary artery disease. Plan for high risk PCI for severe RCA calcification with possible orbital atherectomy on Saturday. On heparin gtt. Continue secondary measures, aspirin, Plavix. 02/17: Patient seen and evaluated. She denies chest pain currently. Plan for high risk PCI on Saturday. Continue heparin gtt. 02/18: Patient without chest pain. She does report some mild shortness of breath, breathing on room air. Plan for high risk PCI tomorrow. Left circumflex with 50% stenosis, RCA with 99% stenosis. She has questions about what time her heart cath is scheduled for tomorrow. Cont heparin gtt. 02/19: Has some shortness of breath this morning. Bruising on bilateral arms. N.p.o. for cardiac cath and angioplasty this morning possible artehrotomy. She wants to have her present when she goes to [employer]. 02/20: Seen after repeat cardiac catheterization was unsuccessful revascularization. Started on Jardiance and spironolactone. Patient awaiting LifeVest and has requested outpatient referral for complex revascularization at [facility] Vitals/I&O Vitals/I&O: Vital Signs Date Time Temp Pulse Resp B/P (MAP) Pulse Ox O2 Delivery O2 Flow Rate FiO2 02/20/22 08:53 91 125/77 02/20/22 08:00 Room Air 02/20/22 07:26 97 2.0 02/20/22 07:00 98.0 18 98.0 I & O 02/19/22 02/19/22 02/20/22 15:00 23:00 07:00 Intake Total 0 ml 200 ml Output Total 200 ml Balance 0 ml 0 ml Physical Exam General: No acute distress Heart: Regular rate Lungs: Crackles Abdomen: Normal bowel sounds Extremities: No cyanosis, Other (trace LE edema) Skin: No breakdown, No significant lesion Labs Labs: Laboratory Tests Test 02/19/22 13:27 02/19/22 14:22 02/19/22 16:51 02/19/22 21:06 Activated Clotting Time 220 sec (92-181) 186 sec (92-181) Glucose (Fingerstick) 96 mg/dL (70-99) 135 mg/dL (70-99) Test 02/20/22 05:10 02/20/22 08:03 Heparin Anti-Xa Act, Unfractionated 0.59 IU/mL (0.30-0.70) Sodium Level 137 mmol/L (136-145) Potassium Level 4.0 mmol/L (3.5-5.1) Chloride Level 101 mmol/L (98-107) Carbon Dioxide Level 24 mmol/L (21-32) Anion Gap 12 (6-14) Blood Urea Nitrogen 11 mg/dL (7-20) Creatinine 0.8 mg/dL (0.6-1.0) Estimated GFR (Cockcroft-Gault) 71.1 Glucose Level 97 mg/dL (70-99) Calcium Level 9.4 mg/dL (8.5-10.1) Glucose (Fingerstick) 107 mg/dL (70-99) Comment Review of Relevant I have reviewed the following items jerad (where applicable) has been applied. Medications: Current Medications Medications (Trade) Dose Ordered Sig/Aura Route PRN Reason Start Time Stop Time Status Last Admin Dose Admin Nitroglycerin (Nitroglycerin) 200 mcg 1X ONCE IART 02/19/22 14:30 02/19/22 14:31 DC 02/19/22 14:30 Verapamil HCl (Verapamil) 2.5 mg 1X ONCE IART 02/19/22 14:30 02/19/22 14:31 DC 02/19/22 14:30 Heparin Sodium (Porcine) (Heparin Sodium) 2,500 unit 1X ONCE IART 02/19/22 14:30 02/19/22 14:31 DC 02/19/22 14:30 Heparin Sodium/ Sodium Chloride (HEPARIN for ARTERIAL LINE FLUSH) 1,000 unit 1X ONCE IART 02/19/22 14:30 02/19/22 14:31 DC 02/19/22 14:30 Midazolam HCl (Versed) 2 mg 1X ONCE IV 02/19/22 14:30 02/19/22 14:31 DC 02/19/22 14:05 Fentanyl Citrate (Fentanyl 2ml Vial) 100 mcg 1X ONCE IV 02/19/22 14:30 02/19/22 14:31 DC 02/19/22 13:15 Iodixanol (Visipaque 320) 184 ml 1X ONCE IART 02/19/22 14:30 02/19/22 14:31 DC 02/19/22 14:30 Heparin Sodium (Porcine) (Heparin Sodium) 500 unit 1X ONCE IV 02/19/22 14:30 02/19/22 14:31 DC 02/19/22 14:30 Lidocaine HCl (Lidocaine 1% 20ml Vial) 20 ml 1X ONCE INJ 02/19/22 14:30 02/19/22 14:31 DC 02/19/22 14:30 Potassium Chloride (Klor-Con) 40 meq 1X ONCE PO 02/19/22 18:30 02/19/22 18:31 DC 02/19/22 18:01 Justifications for Admission Other Justification ISACC LAZO MD February 20, 2022 11:09
[2022-02-20] MEDS ORDERED: METO-239 PO (11:18)
[2022-02-20] MEDS ORDERED: CLOP75TA PO (11:18)
[2022-02-20] MEDS ORDERED: SPIR25TA PO (11:18)
[2022-02-20] MEDS ORDERED: LOSA25TA54 PO (11:18)
[2022-02-20] MEDS ORDERED: EMPA10TA3 PO (11:18)
[2022-02-20] MEDS ORDERED: FURO40TA4 PO (11:18)
[2022-02-20] MEDS ORDERED: ASPI-886 PO (11:18)
--- NOTE | 2022-02-20 11:23 | PDOC3 ---
Discharge Summary Visit Information Date of Admission: February 14, 2022 Date of Discharge: February 20, 2022 Admitting Diagnosis: NSTEMI Final Diagnosis Acute systolic CHF, CAD Brief Hospital Course Allergies Allergies Coded Allergies Type Severity Reaction Last Updated Verified No Known Drug Allergies 02/04/18 No Vital Signs Vital Signs Date Time Temp Pulse Resp B/P (MAP) Pulse Ox O2 Delivery O2 Flow Rate FiO2 02/20/22 08:53 91 125/77 02/20/22 08:00 Room Air 02/20/22 07:26 97 2.0 02/20/22 07:00 98.0 18 98.0 Lab Results Laboratory Tests Test 02/18/22 11:14 02/18/22 18:03 02/18/22 18:21 02/19/22 00:00 Glucose (Fingerstick) 125 mg/dL (70-99) 137 mg/dL (70-99) Heparin Anti-Xa Act, Unfractionated 0.38 IU/mL (0.30-0.70) 0.38 IU/mL (0.30-0.70) Test 02/19/22 06:00 02/19/22 07:19 02/19/22 07:41 02/19/22 11:02 White Blood Count 6.9 x10^3/uL (4.0-11.0) Red Blood Count 4.32 x10^6/uL (3.50-5.40) Hemoglobin 13.0 g/dL (12.0-15.5) Hematocrit 39.0 % (36.0-47.0) Mean Corpuscular Volume 90 fL (79-100) Mean Corpuscular Hemoglobin 30 pg (25-35) Mean Corpuscular Hemoglobin Concent 33 g/dL (31-37) Red Cell Distribution Width 15.6 % (11.5-14.5) Platelet Count 147 x10^3/uL (140-400) Neutrophils (%) (Auto) 69 % (31-73) Lymphocytes (%) (Auto) 19 % (24-48) Monocytes (%) (Auto) 11 % (0-9) Eosinophils (%) (Auto) 1 % (0-3) Basophils (%) (Auto) 1 % (0-3) Neutrophils # (Auto) 4.7 x10^3/uL (1.8-7.7) Lymphocytes # (Auto) 1.3 x10^3/uL (1.0-4.8) Monocytes # (Auto) 0.7 x10^3/uL (0.0-1.1) Eosinophils # (Auto) 0.1 x10^3/uL (0.0-0.7) Basophils # (Auto) 0.0 x10^3/uL (0.0-0.2) Platelet Estimate Adequate (ADEQUATE) Large Platelets Present Heparin Anti-Xa Act, Unfractionated 0.46 IU/mL (0.30-0.70) 0.43 IU/mL (0.30-0.70) Sodium Level 138 mmol/L (136-145) Potassium Level 3.2 mmol/L (3.5-5.1) Chloride Level 100 mmol/L (98-107) Carbon Dioxide Level 27 mmol/L (21-32) Anion Gap 11 (6-14) Blood Urea Nitrogen 11 mg/dL (7-20) Creatinine 0.9 mg/dL (0.6-1.0) Estimated GFR (Cockcroft-Gault) 62.1 Glucose Level 108 mg/dL (70-99) Hemoglobin A1c 6.5 % (4.8-5.6) Calcium Level 9.3 mg/dL (8.5-10.1) Magnesium Level 2.0 mg/dL (1.8-2.4) Glucose (Fingerstick) 109 mg/dL (70-99) 111 mg/dL (70-99) Test 02/19/22 13:27 02/19/22 14:22 02/19/22 16:51 02/19/22 21:06 Activated Clotting Time 220 sec (92-181) 186 sec (92-181) Glucose (Fingerstick) 96 mg/dL (70-99) 135 mg/dL (70-99) Test 02/20/22 05:10 02/20/22 08:03 Heparin Anti-Xa Act, Unfractionated 0.59 IU/mL (0.30-0.70) Sodium Level 137 mmol/L (136-145) Potassium Level 4.0 mmol/L (3.5-5.1) Chloride Level 101 mmol/L (98-107) Carbon Dioxide Level 24 mmol/L (21-32) Anion Gap 12 (6-14) Blood Urea Nitrogen 11 mg/dL (7-20) Creatinine 0.8 mg/dL (0.6-1.0) Estimated GFR (Cockcroft-Gault) 71.1 Glucose Level 97 mg/dL (70-99) Calcium Level 9.4 mg/dL (8.5-10.1) Glucose (Fingerstick) 107 mg/dL (70-99) Laboratory Tests Test 02/19/22 13:27 02/19/22 14:22 02/19/22 16:51 02/19/22 21:06 Activated Clotting Time 220 sec (92-181) 186 sec (92-181) Glucose (Fingerstick) 96 mg/dL (70-99) 135 mg/dL (70-99) Test 02/20/22 05:10 02/20/22 08:03 Heparin Anti-Xa Act, Unfractionated 0.59 IU/mL (0.30-0.70) Sodium Level 137 mmol/L (136-145) Potassium Level 4.0 mmol/L (3.5-5.1) Chloride Level 101 mmol/L (98-107) Carbon Dioxide Level 24 mmol/L (21-32) Anion Gap 12 (6-14) Blood Urea Nitrogen 11 mg/dL (7-20) Creatinine 0.8 mg/dL (0.6-1.0) Estimated GFR (Cockcroft-Gault) 71.1 Glucose Level 97 mg/dL (70-99) Calcium Level 9.4 mg/dL (8.5-10.1) Glucose (Fingerstick) 107 mg/dL (70-99) Brief Hospital Course Ms Soriano is a 71yo female with PMHx DM2, HTN, COPD, smoker Initially seen at [facility] ED for chest pain that was left-sided progressive over 2 weeks with associated shortness of breath and troponin of 169 initially transferred to [facility] for medical care 02/16: Patient seen and evaluated with family at bedside. She reports some pain in her left hip, states from sitting. Had LCH yesterday that showed acute on chronic systolic and diastolic heart failure, two-vessel coronary artery disease. Plan for high risk PCI for severe RCA calcification with possible orbital atherectomy on Saturday. On heparin gtt. Continue secondary measures, aspirin, Plavix. 02/17: Patient seen and evaluated. She denies chest pain currently. Plan for high risk PCI on Saturday. Continue heparin gtt. 02/18: Patient without chest pain. She does report some mild shortness of breath, breathing on room air. Plan for high risk PCI tomorrow. Left circumflex with 50% stenosis, RCA with 99% stenosis. She has questions about what time her heart cath is scheduled for tomorrow. Cont heparin gtt. 02/19: Has some shortness of breath this morning. Bruising on bilateral arms. N.p.o. for cardiac cath and angioplasty this morning possible artehrotomy. She wants to have her present when she goes to [employer]. 02/20: Seen after repeat cardiac catheterization was unsuccessful revascularization. Started on Jardiance and spironolactone. Patient awaiting LifeVest and has requested outpatient referral for complex revascularization at [facility] with Dr. Alexis Consults: Cardiology Problem list: NSTEMI -RCA with 90% ostial stenosis and left circumflex with proximal 50% stenosis LAD and left main with no significant occlusive disease mid LAD with irregularities causing 20% stenosis Systolic and diastolic CHF - EF 15% CAD - RCA stenosis DM2 - a1c 6.5 HTN - now on BB, aldactone, losartan HLD - statin COPD with continued tobacco use Moderate to severe MR Ischemic Cardiomyopathy: EF at 15% Greater than 30 minutes spent on d/c to home Discharge Information Condition at Discharge: Improved Follow Up: Weeks Disposition/Orders: D/C to Home Scheduled Albuterol Sulfate (Proair Hfa) 8.5 Gm Hfa.aer.ad, 8.5 GM INH Q6H for resp, (Reported) Entered as Reported by: ERNA SWEENEY on 02/15/22806 Last Taken: Unknown Dose on Unknown Date & Time Last Action: New Order on 02/15/22806 by ERNA SWEENEY Atorvastatin Calcium (Atorvastatin Calcium) 80 Mg Tablet, 1 TAB PO DAILY for HDL, (Reported) Entered as Reported by: ERNA SWEENEY on 02/15/22806 Last Taken: Unknown Dose on Unknown Date & Time Last Action: New Order on 02/15/22806 by ERNA SWEENEY Duloxetine Hcl (Duloxetine Hcl) 30 Mg Capsule., 1 CAP PO BID for anx, (Reported) Entered as Reported by: ERNA SWEENEY on 02/15/22806 Last Taken: Unknown Dose on Unknown Date & Time Last Action: New Order on 02/15/22806 by ERNA SWEENEY Fluticasone/Salmeterol (Advair 250-50 Diskus) 1 Each Disk.w.dev, 1 PUFF PO BID for resp, (Reported) Entered as Reported by: ERNA SWEENEY on 02/15/22806 Last Taken: Unknown Dose on Unknown Date & Time Last Action: New Order on 02/15/22806 by ERNA SWEENEY Ipratropium/Albuterol Sulfate (Duoneb 0.5-3(2.5) Mg/3 Ml) 3 Ml Ampul.neb, 3 ML NEB QID for COPD, (Reported) Entered as Reported by: ERNA SWEENEY on 02/15/22806 Last Action: New Order on 02/15/22806 by ERNA SWEENEY Metformin Hcl (Metformin Hcl) 500 Mg Tablet, 1 TAB PO DAILY for DM, (Reported) Entered as Reported by: ERNA SWEENEY on 02/15/22806 Last Taken: Unknown Dose on Unknown Date & Time Last Action: New Order on 02/15/22806 by ERNA SWEENEY Omeprazole Magnesium (Prilosec Otc) 20 Mg Tablet.dr, 40 MG PO DAILY, (Reported) Entered as Reported by: Ro Curry on 02/04/18 1624 Last Action: Converted on 02/14/221945 by ISACC LÓPEZ MD Justicifation of Admission Dx: Justifications for Admission: Justification of Admission Dx: Yes ISACC LAZO MD February 20, 2022 11:23
--- NOTE | 2022-02-20 12:21 | CARD ---
MR#: [id number] Date of Study: 02/19/2022 Ordering Physician: REGINA MYLES, Referring Physician: REGINA MYLES, Tech: Jennifer Elias APPROVED REPORT Technologist: Jennifer Elias Nurse: Calin Garcia Procedure(s) performed: fl time: 34.3 min dose: 107 gycm2 contrast: 184 ml moderate sedation: 101 MINS Temporary pacemaker insertion Attempted PTCA and atherectomy of the right coronary artery CS Clinical Frailty Scale [facility] Clinical Frailty Scale: Severely Frail Heart Failure Heart Failure: Yes If Yes, Newly Diagnosed: Yes If Yes, HF Type: Diastolic Systolic If Yes, NYHA Class: Class III CASE TECHNIQUE IV conscious sedation was used throughout procedure with appropriate monitoring and was performed in the presence of a registered nurse who was an independent trained observer other than the physician p erforming the procedure. During this case, Fluoroscopy and low osmolar contrast were used for imaging . Specimen(s) Removed: N/A Estimated Blood loss: 15 cc's. PROCEDURE NARRATIVE Clinical information: 71-year-old woman returned to the [employer] [facility] after stabilization of her heart failure symptoms for plan shea orbital atherectomy and PCI of the ostial RCA Procedure details: After appropriate informed consent the right wrist, right neck and right groin were prepped and drape d in usual sterile fashion. Under 1% lidocaine local anesthesia a 6 Telugu sheath was placed in the right internal jugular vein via ultrasound guidance. Next, a 6 Telugu sheath was placed in the right radial artery. Next, a 4 Telugu sheath was placed in the right common femoral artery for arterial a ccess in the event of any hemodynamic collapse due to the patient's severely depressed ejection fract ion of 15%. Heparin was used for anticoagulation. The patient was previously given aspirin and Plavix. Through a 6 Telugu JR4 guide catheter repeat coronary angiography demonstrated confirmation of the ostial RCA subtotal occlusion. There appeared to be a faint microchannel. Attempts to use a run-through and C hoice PT wires to traverse the microchannel were unsuccessful. Next, multiple other guides were used including a AR-1, AL 0.75 and TAWNYA guide catheters and despite multiple attempts with the Choice PT w salvador the lesion was unable to be traversed. Therefore further intervention was deferred in favor of p ossible high risk PCI with chronic total occlusion set up for possible retrograde intervention. At case completion the right radial sheath was removed and hemostasis was achieved with a triple radi al band. The right IJ sheath was removed after the temporary pacemaker was removed. The right groi n sheath was removed and hemostasis was achieved via manual compression. No acute complications Conclusion 1. Severe ostial RCA stenosis, unsuccessful PTCA. Recommendations 1. Plan for referral to [facility] for [facility] PCI. Signed by : Curtis Noguera, Electronically Approved : 02/19/2022 17:39:03
--- NOTE | 2022-02-20 12:35 | NUR ---
SS following up with discharge planning. SS reviewed pt chart and discussed with pt RN. Pt is currently on room air. COVID19 negative. SS received order for Life Vest. Order and clinical sent to [employer] [facility], ; fax [phone]. Currently awaiting approval from [facility]. Discharge plan is currently to home when medically ready for discharge. SS will continue to follow for discharge planning. Addendum: 02/20/22 at 1620 by JAYLENE ARENAS SS Life Vest approved per [employer] [facility]
[2022-02-20 15:00] VITALS: BP 114/71
[2022-02-20] MEDS: IV NORMAL SALINE 1000ML BAG 1,000 ML IV SCH (16:50)
--- NOTE | 2022-02-20 19:47 | NUR ---
Discharge Note: BETINA SEWELL [facility] Discharge instructions and discharge home medications reviewed with Patient and a copy given. All questions have been answered and understanding verbalized. The following instructions and handouts were given: chest pain, heart failure, post cath instructions IV discontinued, no complications Patient discharged to home with self care on a life vest. Patient verbalized understanding of life vest. Appt made with dr rodriguez for march 30 at 1245. All belongings taken home with patient.
[2022-02-20] MEDS ORDERED: ATORVASTATIN CALCIUM 40 MG TABLET. PO SCH (21:00)
== END 2022-02-20 17:40 | disposition home or self-care (01) | DRG 250 ==
LOC: 6 SOUTH 19:25
PROVIDERS: ADMIT Student in an Organized Health Care Education/Training Program; ATTEND Student in an Organized Health Care Education/Training Program
PROC: 4A023N7 Measurement of Cardiac Sampling and Pressure, Left Heart, Percutaneous Approach (ICD-10-PCS; principal; 2022-02-15)
PROC: B211YZZ Fluoroscopy of Multiple Coronary Arteries using Other Contrast (ICD-10-PCS; 2022-02-15)
PROC: 02C03Z7 Extirpation of Matter from Coronary Artery, One Artery, Orbital Atherectomy Technique, Percutaneous Approach (ICD-10-PCS; 2022-02-19)
PROC: 02703ZZ Dilation of Coronary Artery, One Artery, Percutaneous Approach (ICD-10-PCS; 2022-02-19)
DX: I21.4 Non-ST elevation (NSTEMI) myocardial infarction (principal); I50.43 Acute on chronic combined systolic (congestive) and diastolic (congestive) heart failure; E03.8 Other specified hypothyroidism; E11.65 Type 2 diabetes mellitus with hyperglycemia; E78.5 Hyperlipidemia, unspecified; E87.6 Hypokalemia; F17.210 Nicotine dependence, cigarettes, uncomplicated; I11.0 Hypertensive heart disease with heart failure; I25.10 Atherosclerotic heart disease of native coronary artery without angina pectoris; I25.5 Ischemic cardiomyopathy; Z20.822 Contact with and (suspected) exposure to COVID-19; I44.7 Left bundle-branch block, unspecified; J44.9 Chronic obstructive pulmonary disease, unspecified; Z28.310 Unvaccinated for COVID-19; Z85.41 Personal history of malignant neoplasm of cervix uteri; Z90.710 Acquired absence of both cervix and uterus; Z98.61 Coronary angioplasty status; F41.9 Anxiety disorder, unspecified; K21.9 Gastro-esophageal reflux disease without esophagitis; E55.9 Vitamin D deficiency, unspecified; G56.01 Carpal tunnel syndrome, right upper limb; K80.20 Calculus of gallbladder without cholecystitis without obstruction; M19.90 Unspecified osteoarthritis, unspecified site; Z71.6 Tobacco abuse counseling; I34.0 Nonrheumatic mitral (valve) insufficiency
CPT/HCPCS: 33210; 36415; 80048; 80053; 80061; 82962; 83036; 83735; 84443; 84484; 85025; 85049; 85347; 85520; 85610; 87426; 92933; 93306; 93458; 94640; 94760; 99152; 99153; 99406; C1769; C1894; J1644; J1815; J1940; J2250; J3010; J3490; J7030; Q9967; 99285-25; C8929; G0378